=== PATIENT | male | born 1965 | race Two or more races ===

== ENCOUNTER 2019-06-03 19:45 | Inpatient (IN) | payer MEDICARE, OTHER ==
[~2019-06-03] VITALS: Ht 170.2 cm; Wt 83.5 kg
--- NOTE | 2019-06-03 20:38 | NUR ---
NURSE NOTES: Report received from GAUTAM Booker. Patient being transferred from [facility] for direct admission. Patient awaiting transportation from [facility] which is scheduled for 2129. Per report patient is alert and oriented x4. No signs of cardiac or respiratory distress noted. Patient is SR on tele monitor and on 12 lead EKG performed at [facility]. CT performed and per report showed R basal ganglia subacute infarct. Family is present at bedside to take belongings home and will be meeting patient at [facility]. Pt received the following medications: 18:44 Aspirin 325mg PO 17:01 NS 500mL IV 17:01 Ativan 1mg IVP VS as follows: BP 186/87, HR 81, Temp 97.5, RR 18, O2 sat 99% on RA Will await patient transport.
[2019-06-03 22:54] VITALS: BP 147/77
--- NOTE | 2019-06-03 22:54 | NUR ---
NURSE NOTES: Patient arrived for direct admission. Patient transported to room by [facility] without incident. Report received from Reno Morrison Patient is alert and oriented x4. No signs of cardiac or respiratory distress noted. Equal breath sound bilaterally in all lobes, pt is on room air. Patient is SR on tele monitor. Abdomen is soft, round, non-tender and patient reports no pain. Neuro check performed; Left sided arm and leg weakness noted 3/5 strength. Pupils 3mm and PERRLA, no tongue deviation at this time, no facial droop noted. Patient speech is of normal tone, speed and volume. Patient able to ambulate but gait is weak and patient encouraged to use call light for assistance, urinal at bedside. Left sided AV fistula noted, both thrill and bruit present. No signs of bleeding at this time. Patient provided with a bed bath and oral care. Patient tolerated care well. Patient remains resting in bed; bed is in lowest position, safety wheels engaged, side rails up x3, bed alarm activated and call light within reach. Will call MD for admission orders. Will Continue to monitor.
--- NOTE | 2019-06-03 23:30 | NUR ---
NURSE NOTES: Confirmed home medications with patient Per patient only takes Amlodipine 10mg PO daily Furosemide 5mg PO daily Confirmed NKA to medications or food
--- NOTE | 2019-06-03 23:39 | NUR ---
NURSE NOTES: Called Dr Gomez for admission orders. Dr Gomez stated he would call back in 5 minutes. Will await orders. Will continue to monitor.
[2019-06-04] VITALS: BP 144/78
--- NOTE | 2019-06-04 | NUR ---
NURSE NOTES: Neuro check performed; Pt aroused to minor stimulation as he was asleep (+1 NIH stroke scale) Left sided arm and leg weakness noted 3/5 strength. Left arm drift, but does not hit bed (+1 on NIH stroke scale) Pt states left hand is still slightly numb (+1 on NIH stroke scale for change in sensation) Bilateral Pupils 3mm and PERRLA, no tongue deviation at this time, no facial droop noted. Patient speech is of normal tone, speed and volume. Patient remains oriented and denies visual changes. Patient remains resting in bed; bed in lowest position, safety wheels engaged, call light within reach, side rails up x3, bed alarm activated. Will continue to monitor.
[2019-06-04] MEDS ORDERED: FUROSEMIDE20 M1 ORAL (00:21)
[2019-06-04] MEDS ORDERED: LISINOPRIL5 MG ORAL (00:21)
[2019-06-04] MEDS ORDERED: Omnipaue 350mg/ml 100ml vial INJ PRN (00:30)
--- NOTE | 2019-06-04 00:30 | NUR ---
NURSE NOTES: Dr Gomez called to give admission orders. Admission orders as follows: Admit to tele Full code Renal Diet CBC, CMP, Mg, Phos, Trop, Lipids, Pt, ptt, INR for AM labs Neuro consult with MD Tatiana Neuro Checks Q [address] Brain with and without contrast (even with elevated BUN/creat) Continue home rx + Heparin 5,000u Q 8hr, ASA 81mg Daily, Colace 100mg Q 12hr, Clonidine 0.1 mg PO Q 4hr PRN SBP>160, Tylenol 650mg PO Q6hr PRN mild pain, Zofran 4mg IVP Q 4hr PRN nausea/vomiting Will carry out orders. Will continue to monitor.
--- NOTE | 2019-06-04 01:00 | NUR ---
NURSE NOTES: Witnessed consent for CT with and without contrast. Signed consent form placed in patient chart. Will continue to monitor.
[2019-06-04 04:00] VITALS: BP 149/77
--- NOTE | 2019-06-04 07:17 | NUR ---
NURSE NOTES: Received report from Nohelia FLOREZ. Pt in bed AOX4 and able to make needs known. No c/o pain and denied SOB. NPO for Brain CT with contrast. IV in RAC 20G SL patent and asymptomatic. Sinus rhythm on the patient monitor. Call light within easy reach. Will continue to plan of care.
--- NOTE | 2019-06-04 07:17 | NUR ---
HAND-OFF: Report given to GAUTAM Berg. No signs of cardiac or respiratory distress noted. No change from initial neuro check.
[2019-06-04] MEDS ORDERED: Isovue-300 100ml vial INJ PRN (07:45)
[2019-06-04 08:00] VITALS: BP 147/82
[2019-06-04] MEDS ORDERED: Docusate 100mg cap ORAL SCH (09:00)
[2019-06-04] MEDS: Aspirin Baby 81mg ORAL SCH (09:20)
[2019-06-04] MEDS: Heparin 5000 units/ml inj SUBQ SCH ×2 (10:19→21:34)
--- NOTE | 2019-06-04 10:47 | Diagnostic Imaging Report ---
Indication: Headache Technique: Contiguous 5 mm thick transaxial imaging of the head obtained in a Siemens Sensation [address] scanner before and after intravenous administration of non-ionic contrast. Soft tissue and bone windows generated. Total Dose length Product (DLP): 2978.[address] Dose Index Volume (CTDIvol): 125.4 mGy Comparison: none Findings: There is abnormal slightly high attenuation within the right basal ganglia region right thalamus extending into the right salamanca radiata. There is mass effect on the right lateral ventricle which is compressed and asymmetrically smaller than the left. In addition just lateral to this area of high density there is hypoattenuation noted with some mild peripheral enhancement. The nature of this is not known and could be on the basis of a previous subacute infarct. Other possibilities such as underlying mass or cerebritis are not excluded. Further evaluation with MRI suggested. The basal cisterns appear normal. There is 5 mm midline shift. The posterior fossa structures appear unremarkable. Osseous structures are intact. There is some opacification of the left mastoid air cells. Paranasal sinuses are clear as visualized. IMPRESSION: Abnormal enhancement of the right basal ganglia region extending into the right salamanca radiata with mass effect and edema compressing the right lateral ventricle with 5 right to left midline shift. Considerations include subacute infarction, tumor and cerebritis. Further evaluation with MRI with gadolinium is recommended as well as clinical correlation and comparison to prior studies if available. The CT scanner at [facility] is accredited by the [employer] and the scans are performed using dose optimization techniques as appropriate to a performed exam including Automatic Exposure control.
[2019-06-04 11:23] VITALS: BP 161/87
--- NOTE | 2019-06-04 12:04 | Consultation ---
History of Present Illness General Date patient seen: Jun 04, 2019 Present Illness HPI 53 year old male with hx of DM>20 years, HTN, ESRF on HD around three years, presented to [facility] yesterday after HD with CC of Left arm heaviness and weakness. MRI at [facility] showed subacute capsular infarct vs, cerebritis vs tumor. Pt is transferred to [facility] for further management. Allergies: Coded Allergies: No Known Allergies (Unverified , 06/04/19) Medication History Scheduled Lisinopril (Lisinopril*), 5 MG ORAL DAILY, (Reported) Scheduled PRN Furosemide* (Lasix*), 5 MG ORAL DAILY PRN for For High Blood Pressure, (Reported ) Patient History Healthcare decision maker Resuscitation status Full Code Advanced Directive on File Past Medical/Surgical History Past Medical/Surgical History: (1) Diabetes mellitus (2) History of hypertension (3) ESRD (end stage renal disease) Review of Systems All Other Systems: negative except mentioned in HPI Physical Exam General Appearance: WD/WN, no apparent distress Lines, tubes and drains: peripheral HEENT: normocephalic, atraumatic Neck: non-tender, normal alignment Respiratory/Chest: chest wall non-tender, lungs clear, normal breath sounds Breasts: no masses Cardiovascular/Chest: normal peripheral pulses, normal rate Abdomen: normal bowel sounds Genitourinary/Rectal: normal genital exam Extremities: normal range of motion Skin Exam: normal pigmentation Neurologic: care professional II-XII grossly normal Last 24 Hour Vital Signs Date Time Temp Pulse Resp B/P (MAP) Pulse Ox O2 Delivery O2 Flow Rate FiO2 06/04/19 11:27 161/87 06/04/19 11:23 97.3 78 20 161/87 (111) 96 06/04/19 09:20 68 147/82 06/04/19 09:00 Room Air 06/04/19 08:00 68 06/04/19 08:00 97.5 74 18 147/82 (103) 97 06/04/19 04:00 97.6 68 19 149/77 (101) 99 06/04/19 03:28 67 06/04/19 00:00 97.7 69 20 144/78 (100) 99 06/03/19 23:24 65 06/03/19 23:21 Room Air 06/03/19 22:54 98.5 82 20 147/77 (100) 98 Intake and Output 06/03/19 06/04/19 19:00 07:00 Output Total 100 ml Balance -100 ml Output Urine Total 100 ml # Voids 1 Laboratory Tests Test 06/04/19 05:55 Prothrombin Time 10.6 SEC (9.30-11.50) Prothromb Time International Ratio 1.0 (0.9-1.1) Activated Partial Thromboplast Time 28 SEC (23-33) Height (Feet): 5 Height (Inches): 7.00 Weight (Pounds): 180 Medications Current Medications Medications (Trade) Dose Ordered Sig/Felice Route PRN Reason Start Time Stop Time Status Last Admin Dose Admin Acetaminophen (Tylenol) 650 mg Q4H PRN ORAL Mild Pain/Temp > 100.5 06/04/19 00:30 07/04/19 00:29 Amlodipine Besylate (Norvasc) 10 mg DAILY ORAL 06/04/19 09:00 07/04/19 08:59 06/04/19 09:20 Aspirin (ASA) 81 mg DAILY ORAL 06/04/19 09:00 07/04/19 08:59 06/04/19 09:20 Clonidine HCl (Catapres Tab) 0.1 mg Q4H PRN ORAL SBP >160 06/04/19 00:30 07/04/19 00:29 06/04/19 11:27 Docusate Sodium (Colace) 100 mg TWICE A DAY ORAL 06/04/19 09:00 07/04/19 08:59 06/04/19 09:20 Furosemide (Lasix) 5 mg DAILY ORAL 06/04/19 09:00 07/04/19 08:59 UNV Heparin Sodium (Porcine) (Heparin 5000 units/ml) 5,000 units EVERY 8 HOURS SUBQ 06/04/19 10:00 07/04/19 09:59 06/04/19 10:19 Iopamidol (Isovue-300 100ml) 100 ml NOW PRN INJ Radiology Procedure 06/04/19 07:45 06/06/19 07:31 Ondansetron HCl (Zofran) 4 mg EVERY 4 HOURS PRN IVP Nausea & Vomiting 06/04/19 00:30 07/04/19 00:29 Assessment/Plan Problem List: (1) CVA (cerebral vascular accident) ICD Codes: I63.9 - Cerebral infarction, unspecified SNOMED: 171563810 (2) Diabetes mellitus ICD Codes: E11.9 - Type 2 diabetes mellitus without complications SNOMED: 69939179 (3) ESRD (end stage renal disease) ICD Codes: N18.6 - End stage renal disease SNOMED: 44807634 (4) History of hypertension ICD Codes: Z86.79 - Personal history of other diseases of the circulatory system SNOMED: 944654513 Assessment/Plan: pt/ot evaluation doppler of carotid artery and echocardiogram Neuro evaluation HD by nephrology sliding scale diabetic diet Savannah Sales MD Jun 04, 2019 12:04
--- NOTE | 2019-06-04 12:18 | Consultation ---
Consult Note Consult Note asked to eval for dialysis management- on HD for 3 years M W Sat dialysed yesterday here for left sided weakness acute no allergies had eye surgeries Dm HTN years Assessment/Plan ESRD CVA affecting Left side HTN DM HD in am check labs keep BP and BS in check per consultants Samir Liriano MD Jun 04, 2019 12:18
[2019-06-04 13:09] LABS: BASOPHILS % (AUTO) 1.3 % (0.0-2.0); EOSINOPHILS % (AUTO) 2.2 % (0.0-3.0); HEMATOCRIT 38.7 % (42.0-52.0); HEMOGLOBIN 12.9 G/DL (14.2-18.0); LYMPHOCYTES % (AUTO) 21.9 % (20.0-45.0); MEAN CORPUSCULAR VOLUME 91 FL (80-99); MONOCYTES % (AUTO) 7.9 % (1.0-10.0); NEUTROPHILS % (AUTO) 66.8 % (45.0-75.0); PLATELET COUNT 158 K/UL (150-450); RED BLOOD COUNT 4.26 M/UL (4.70-6.10); RED CELL DISTRIBUTION WIDTH 13.3 % (11.6-14.8)
--- NOTE | 2019-06-04 13:26 | History & Physical ---
History and Physical History & Physicial Mac Gomez MD Jun 04, 2019 13:26
[2019-06-04] MEDS ORDERED: Gadavist 7.5mMol/7.5ml vial IV PRN (13:30)
[2019-06-04] MEDS: Docusate 100mg cap ORAL SCH ×2 (13:33→18:03)
[2019-06-04 13:35] LABS: CREATINE KINASE 113 U/L (26-308); LACTATE DEHYDROGENASE 164 U/L (81-234)
[2019-06-04 13:51] LABS: APPEARANCE,URINE CLEAR; BILIRUBIN, URINE NEGATIVE (NEGATIVE); COLOR,URINE PALE YELLOW; GLUCOSE, URINE (UA) 4+ (NEGATIVE); KETONES,URINE NEGATIVE (NEGATIVE); LEUKOCYTE ESTERASE ,URINE 1+ (NEGATIVE); NITRITE,URINE NEGATIVE (NEGATIVE); PH,URINE 9 (4.5-8.0); PROTEIN,URINE 3+ (NEGATIVE); UROBILINOGEN,URINE NORMAL MG/DL (0.0-1.0)
[2019-06-04 14:22] LABS: % IRON SATURATION 28 % (15-50); IRON 47 ug/dL (50-175); TOTAL IRON BINDING CAPACITY 168 ug/dL (250-450)
[2019-06-04 14:59] LABS: ALANINE AMINOTRANSFERASE 16 U/L (12-78); ALBUMIN 3.2 G/DL (3.4-5.0); ALBUMIN/GLOBULIN RATIO 0.9 (1.0-2.7); ALKALINE PHOSPHATASE 82 U/L (46-116); ANION GAP 9 mmol/L (5-15); ASPARTATE AMINO TRANSFERASE 15 U/L (15-37); BLOOD UREA NITROGEN 43 mg/dL (7-18); CALCIUM 8.4 MG/DL (8.5-10.1); CARBON DIOXIDE 30 MMOL/L (21-32); CHLORIDE 99 MMOL/L (98-107); SODIUM 138 MMOL/L (136-145)
[2019-06-04 15:09] LABS: BILIRUBIN,TOTAL 0.5 MG/DL (0.2-1.0)
[2019-06-04] MEDS ORDERED: LORazepam Inj 2mg/ml 1ml IV SCH (15:15)
[2019-06-04 16:00] VITALS: BP 132/74
--- NOTE | 2019-06-04 16:30 | NUR ---
CASE MANAGEMENT: INITIAL REVIEW 53 YR OLD MALE DIRECT ADMIT FROM [facility] MRI SHOWS SUB ACUTE CAPSULAR INFARCT VS CEREBRITIS VS TUMOR SI: CVA . DM. ESRD . 98.5 82 20 147/77 98% ON RA IS: PO/OT EVAL NEURO EVAL CAROTID DOPPLER NEPHRO EVAL 2E TELE UNIT PLAN: DISCHARGE WHEN MEDICALLY CLEAR
--- NOTE | 2019-06-04 17:00 | NUR ---
NURSE NOTES: Spoke to Roberta [facility] for scheduling HD on 06/05/2019
--- NOTE | 2019-06-04 17:14 | Diagnostic Imaging Report ---
Indication: 53-year-old male altered level of consciousness Technique: The head was imaged in a 1.5 Mita magnet. Sequences obtained include sagittal and axial T1 FLAIR, axial T2 fast spin echo with fat saturation, axial T2 FLAIR, diffusion and ADC map. Gadolinium-enhanced axial and coronal T1 FLAIR obtained also. Comparison: CT head with and without contrast performed earlier today Examination demonstrates a complex, partially cystic, mass with areas of intense enhancement demonstrated within the right thalamus and intimately associated with portions of the right lateral ventricle especially the temporal horn. 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 The mass abuts or involves part of the choroid plexus and extends through the lateral wall of the right lateral ventricle into the salamanca radiata. Approximate dimensions of the mass are 4.2 x 2.8 x 2.8 cm. There is compression of the third ventricle by the medial part of the mass at the level of the thalamus. There is vasogenic edema within the right temporal lobe and parietal lobe laterally. There is a band like focus of diffusion restriction posterior to the mass just posterior and medial to the right lateral ventricle involving the right posterior aspect of the corpus callosum and adjacent white matter measuring about 2 x 0.6 cm consistent with an acute CVA. Portions of the mass exhibit some diffusion restriction also there is no hydrocephalus. No additional lesions are seen. The ventricles appear symmetric. The basal cisterns are intact. Corpus callosum is normal. There is some T2 hyperintense signal within the mastoid portions of both temporal bones. Osseous bone marrow signal normal. IMPRESSION: Heterogeneous, enhancing, partially cystic 4.2 x 2.8 x 2.8 cm mass involving the right thalamus, right lateral ventricle and adjacent salamanca radiata suspicious for primary MATERIAL HANDLER neoplasm. Mild compression of the third ventricle without evidence of hydrocephalus. No evidence of acute hemorrhage. No additional lesions identified. Differential considerations include primary MATERIAL HANDLER neoplasm such as a subependymoma or glioblastoma. Associated small, acute infarct involving the right aspect of the splenium of the corpus callosum and adjacent salamanca radiata. Critical value communication. Findings were discussed via telephone with Dr. Gomez via telephone 5:00 PM 06/04/2019.
[2019-06-04] MEDS: NovoLOG Insulin Flexpen SUBQ SCH ×2 (17:35→21:35)
--- NOTE | 2019-06-04 18:00 | History and Physical Report ---
DATE OF ADMISSION: 06/03/2019 CHIEF COMPLAINT: Transferred from [facility] due to the altered mental status with left-sided weakness. HISTORY OF PRESENT ILLNESS: This is a 53-year-old gentleman with past medical history significant for end-stage renal disease, on hemodialysis, Saturday, Saturday, Saturday; diabetes type 2 for long period of time; hypertension; history of right kidney mass, status post nephrectomy over 5 years ago with the recent left arm AV shunt , who presented to the hospital initially at [facility], complaining about the left-sided weakness. The patient stated that it has been going on for a week. Weakness is constant and never experienced this before and nothing makes it better and lying down on the left side, exacerbates the symptoms. The patient denies any trauma or fall or head trauma. Complained about tingling, numbness, and weakness on the left side and denies any fever, chills, nausea, or vomiting. Denies any bowel or urine incontinence. Denies any loss of consciousness. Shortly after initial evaluation in the emergency, the patient was confirmed to have acute CVA on a MRI of the brain and subsequently, the patient was transferred to the [facility] for further evaluation, neurological monitoring. PAST MEDICAL HISTORY AND PAST SURGICAL HISTORY: As above. History of end-stage renal disease, on hemodialysis; diabetes type 2; hypertension; history of right nephrectomy due to the kidney mass; history of left arm clot formation, AV fistula clotted, status post recent declotting; and history of bilateral cataract surgery. MEDICATIONS AT HOME: Please refer to medication reconciliation. ALLERGIES: No known drug allergies. SOCIAL HISTORY: The patient denies any smoking, alcohol, or drugs at this time. 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 FAMILY HISTORY: Mother had end-stage renal disease and diabetes. Father has colon cancer and from a sequela of that. REVIEW OF SYSTEMS: Mostly as above. Denies any dysuria, frequency, or hematuria. Denies any hemoptysis or hematochezia. Denies any double vision. Denies any loss of consciousness. Denies any suicidal or homicidal ideation. PHYSICAL EXAMINATION: VITAL SIGNS: Upon arrival to [facility], temperature 97.6, pulse of 68, respirations 19, blood pressure 149/77. GENERAL: The patient is awake, responsive, in no acute distress. HEAD AND NECK: Pupils are equal and reactive to light. Extraocular movements intact. Neck was supple. No JVD. LUNGS: Good air entry. No wheeze or rales. HEART: S1, S2. Regular rhythm. No gallops. ABDOMEN: Soft, nondistended, nontender. Positive bowel sounds. EXTREMITIES: No cyanosis, clubbing, edema. Left upper extremity had AV fistula working with a thrill. NEUROLOGIC: Cranial nerves II through XII grossly intact. The patient is moving all the extremities, left side weaker than right side. Gait is unsteady and abnormal. LABORATORY DATA: On admission from [facility] showed PT of 10, INR 1.0, PTT of 28. The patient had from [facility], troponin 0.08, magnesium is 2.3, calcium is 8.9, total bilirubin of 0.6, total protein is 8.3, creatinine is 8.1, BUN is 28, glucose is 323. ALT of 18. WBC of 4.6, hemoglobin of 13, hematocrit 42, platelet is 168,000. The patient had a MRI of the brain done at [facility], noted that the patient has signal changes in the right internal capsule, right basal ganglia is suggestive of the possible subacute infarction to exclude any underlying neoplasms. Follow up with a noncontrast CT of the head and MRI of the brain with contrast is recommended, a 2 mm midline shift in the left side, bilateral mastoiditis, and right maxillary sinusitis. EKG, is a sinus rhythm with ventricular rate of 74, effusion complex was noted, left anterior fascicular block. No ST-elevation was noted. No T-wave inversion. Left ventricular hypertrophy was noted. The patient has a Q-wave in lead I aVL. ASSESSMENT: 1. Left-sided weakness, most likely secondary to acute CVA in the right basal ganglia region extending to the right salamanca radiata with a mass effect and edema compressing on the right lateral ventricle right to left midline shift. 2. Hypertension. 3. End-stage renal disease, on hemodialysis. 4. Diabetes type 2. 5. Dyslipidemia. PLAN: Admit the patient to monitor unit. The patient's code status is Full code. DVT prophylaxis. SCD and heparin subcutaneous. We will follow up with Dr. Sales from Pulmonary Critical Care and Dr. Liriano from Nephrology. Monitor laboratory. Neuro check. Echocardiogram. Code status, Full code and monitor blood pressure closely. Mac Gomez M.D. DR: KELLY JOB#: [id number] CC:
--- NOTE | 2019-06-04 19:05 | NUR ---
NURSE NOTES: Dr. Gomez paged for hyperglycemia(Bmg/dl). Awaiting for reply
--- NOTE | 2019-06-04 19:31 | NUR ---
HAND-OFF: Report given to Alexis FLOREZ. Pt remains stable..
--- NOTE | 2019-06-04 19:37 | NUR ---
NURSE NOTES: Received report from GAUTAM Villegas. Patient is in bed, awake and responsive. Breathing regular and unlabored with no SOB noted at this time. Patient's IV is intact and saline locked, dialysis site is intact. Morning nurse informed this RN about the patient's increased BG and that the doctor was notified and awaiting response. Patient denies any pain or discomfort at this time. Bed is in lowest position, breaks engaged, and call light within reach. Will continue to monitor.
[2019-06-04 20:00] VITALS: BP 137/68
[2019-06-04] MEDS: Atorvastatin 80mg tab ORAL SCH (21:33)
[2019-06-04] MEDS: GlipiZIDE 5mg tab ORAL SCH (22:29)
[2019-06-05] VITALS: BP 127/58
--- NOTE | 2019-06-05 00:35 | NUR ---
NURSE NOTES: Patient requested to see nurse and he stated that "I feel a little weak, I think my blood sugar is low." Upon assessment of patient's blood sugar, BG was at 65. Offered patient juice, rechecked BG again in 15 minutes and it was at 69. Offered patient a sandwich. After eating the sandwich the patient stated "I am feeling much better now." Will reassess the patient and continue to monitor the BG. Patient is currently stable with no distress noted at this time.
--- NOTE | 2019-06-05 01:50 | NUR ---
NURSE NOTES: Reassessed patient's BG and it was 148. Patient no longer complaining of weakness. Patient comfortably resting in bed.Will continue to monitor.
[2019-06-05 04:00] VITALS: BP 130/64
[2019-06-05] MEDS: Heparin 5000 units/ml inj SUBQ SCH ×3 (05:20→21:35)
[2019-06-05] MEDS: NovoLOG Insulin Flexpen SUBQ SCH ×4 (06:22→21:36)
[2019-06-05 06:56] LABS: HEMOGLOBIN 12.1 G/DL (14.2-18.0); MEAN CORPUSCULAR VOLUME 91 FL (80-99); PLATELET COUNT 167 K/UL (150-450); RED BLOOD COUNT 3.96 M/UL (4.70-6.10); RED CELL DISTRIBUTION WIDTH 13.1 % (11.6-14.8); WHITE BLOOD COUNT 5.7 K/UL (4.8-10.8)
--- NOTE | 2019-06-05 07:15 | NUR ---
NURSE NOTES: Received report from Cristela FLOREZ. Pt in bed awake and orientedx3 but forgetful. IV in RAC 20G but infiltrated. Will restart the new IV line. Bed in lowest position and locked. Side rails x3 up for safety. Call light within easy reach. No SOB noted. Will continue to plan of care.
--- NOTE | 2019-06-05 07:15 | NUR ---
HAND-OFF: Report given to GAUTAM Villegas. Patient in stable condition. Plan of care endorsed.
[2019-06-05 07:48] LABS: ALANINE AMINOTRANSFERASE 16 U/L (12-78); ALBUMIN 3.2 G/DL (3.4-5.0); ALBUMIN/GLOBULIN RATIO 0.9 (1.0-2.7); ALKALINE PHOSPHATASE 84 U/L (46-116); ANION GAP 8 mmol/L (5-15); ASPARTATE AMINO TRANSFERASE 16 U/L (15-37); BILIRUBIN,TOTAL 0.3 MG/DL (0.2-1.0); BLOOD UREA NITROGEN 52 mg/dL (7-18); CALCIUM 8.4 MG/DL (8.5-10.1); CARBON DIOXIDE 30 MMOL/L (21-32); CHLORIDE 101 MMOL/L (98-107); CHOLESTEROL 134 MG/DL (< 200); CREATININE 11.7 MG/DL (0.55-1.30); HDL CHOLESTEROL 41 MG/DL (40-60); PHOSPHORUS 4.8 MG/DL (2.5-4.9); POTASSIUM 4.3 MMOL/L (3.5-5.1); SODIUM 139 MMOL/L (136-145); TRIGLYCERIDES 80 MG/DL (30-150)
[2019-06-05 08:00] VITALS: BP 120/64
--- NOTE | 2019-06-05 08:26 | NUR ---
NURSE NOTES: Made Dr. Sales aware of elevated trop-i results to 0.088. No new ordered noted.
[2019-06-05] MEDS: Docusate 100mg cap ORAL SCH ×3 (08:45→17:28)
[2019-06-05] MEDS: Aspirin Baby 81mg ORAL SCH (08:46)
[2019-06-05] MEDS: GlipiZIDE 5mg tab ORAL SCH ×2 (08:46→17:28)
--- NOTE | 2019-06-05 11:22 | Pulmonology Progress Note ---
Assessment/Plan Problems: (1) CVA (cerebral vascular accident) (2) Diabetes mellitus (3) ESRD (end stage renal disease) (4) History of hypertension Assessment/Plan doing better pt evaluation appreciated BP controlled Echo reviewed, EF wnl doppler of carotid artery reviewed, wnl f/u Troponin level, Cardiology to see only on Aspirin, might benefit from Plavix for secondary prevention of CVA if ok with neuro awaiting neuro evaluation. Subjective ROS Limited/Unobtainable: No Constitutional: Reports: no symptoms HEENT: Repors: no symptoms Respiratory: Reports: no symptoms Allergies: Coded Allergies: No Known Allergies (Unverified , 06/04/19) Objective Last 24 Hour Vital Signs Date Time Temp Pulse Resp B/P (MAP) Pulse Ox O2 Delivery O2 Flow Rate FiO2 06/05/19 09:00 Room Air 06/05/19 08:46 71 120/64 06/05/19 08:46 71 120/64 06/05/19 08:00 69 06/05/19 08:00 97.0 71 20 120/64 (82) 97 06/05/19 04:00 69 06/05/19 04:00 98.2 74 20 130/64 (86) 97 06/05/19 00:00 70 06/05/19 00:00 98.1 68 20 127/58 (81) 96 06/04/19 21:33 70 137/68 06/04/19 21:00 Room Air 06/04/19 20:00 83 06/04/19 20:00 98.4 70 20 137/68 (91) 95 06/04/19 16:00 71 06/04/19 16:00 97.7 69 18 132/74 (93) 96 06/04/19 12:00 70 06/04/19 11:27 161/87 06/04/19 11:23 97.3 78 20 161/87 (111) 96 Intake and Output 06/04/19 06/05/19 19:00 07:00 Intake Total 240 ml 320 ml Balance 240 ml 320 ml Intake Oral 240 ml 320 ml # Voids 2 2 General Appearance: WD/WN HEENT: normocephalic, atraumatic Respiratory/Chest: chest wall non-tender, lungs clear Cardiovascular: normal peripheral pulses, normal rate Abdomen: normal bowel sounds, soft, non tender Genitourinary: normal external genitalia 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 Laboratory Tests 06/04/19 12:30: White Blood Count 5.0, Red Blood Count 4.26L, Hemoglobin 12.9L, Hematocrit 38.7L , Mean Corpuscular Volume 91, Mean Corpuscular Hemoglobin 30.3, Mean Corpuscular Hemoglobin Concent 33.3, Red Cell Distribution Width 13.3, Platelet Count 158, Mean Platelet Volume 7.2, Neutrophils (%) (Auto) 66.8, Lymphocytes (% ) (Auto) 21.9, Monocytes (%) (Auto) 7.9, Eosinophils (%) (Auto) 2.2, Basophils ( %) (Auto) 1.3, Erythrocyte Sedimentation Rate 32H, Reticulocyte Count 0.7, Uric Acid 3.8, Iron Level 47L, Total Iron Binding Capacity 168L, Percent Iron Saturation 28, Unsaturated Iron Binding 121, Lactate Dehydrogenase 164, Total Creatine Kinase 113, C-Reactive Protein, Quantitative 1.2H, Carcinoembryonic Antigen [Pending], Vitamin B12 Level 1315H, Folate 69.4H 06/04/19 13:30: Urine Color Pale yellow, Urine Appearance Clear, Urine pH 9, Urine Specific [place] 1.015, Urine Protein 3+H, Urine Glucose (UA) 4+H, Urine Ketones Negative , Urine Blood 2+H, Urine Nitrite Negative, Urine Bilirubin Negative, Urine Urobilinogen Normal, Urine Leukocyte Esterase 1+H, Urine RBC 2-4H, Urine WBC 5- 10H, Urine Squamous Epithelial Cells None, Urine Bacteria Occasional, Urine Eosinophils None seen, Urine Random Sodium 72, Urine Potassium Timed 37 06/04/19 14:10: Sodium Level 138, Potassium Level 5.0, Chloride Level 99, Carbon Dioxide Level 30, Anion Gap 9, Blood Urea Nitrogen 43H, Creatinine 10.0H, Estimat Glomerular Filtration Rate 5.5, Glucose Level 383H, Calcium Level 8.4L, Total Bilirubin 0.5 , Aspartate Amino Transf (AST/SGOT) 15, Alanine Aminotransferase (ALT/SGPT) 16, Alkaline Phosphatase 82, Total Protein 6.8, Albumin 3.2L, Globulin 3.6, Albumin/ Globulin Ratio 0.9L 06/05/19 05:47: White Blood Count 5.7, Red Blood Count 3.96L, Hemoglobin 12.1L, Hematocrit 36.0L , Mean Corpuscular Volume 91, Mean Corpuscular Hemoglobin 30.5, Mean Corpuscular Hemoglobin Concent 33.6, Red Cell Distribution Width 13.1, Platelet Count 167, Mean Platelet Volume 7.4, Neutrophils (%) (Auto) , Lymphocytes (%) ( Auto) , Monocytes (%) (Auto) , Eosinophils (%) (Auto) , Basophils (%) (Auto) , Sodium Level 139, Potassium Level 4.3, Chloride Level 101, Carbon Dioxide Level 30, Anion Gap 8, Blood Urea Nitrogen 52H, Creatinine 11.7H, Estimat Glomerular Filtration Rate 4.6, Glucose Level 162#H, Calcium Level 8.4L, Total Bilirubin 0.3, Aspartate Amino Transf (AST/SGOT) 16, Alanine Aminotransferase (ALT/SGPT) 16, Alkaline Phosphatase 84, Total Protein 6.9, Albumin 3.2L, Globulin 3.7, Albumin/Globulin Ratio 0.9L, Differential Total Cells Counted 100, Neutrophils % (Manual) 66, Lymphocytes % (Manual) 28, Monocytes % (Manual) 5, Eosinophils % (Manual) 1, Basophils % (Manual) 0, Band Neutrophils 0, Platelet Estimate Adequate, Platelet Morphology Normal, Red Blood Cell Morphology Normal, Phosphorus Level 4.8, Magnesium Level 2.2, Troponin I 0.088H, Triglycerides Level 80, Cholesterol Level 134, LDL Cholesterol 74, HDL Cholesterol 41, Cholesterol/HDL Ratio 3.3 06/05/19 09:00: Stool Occult Blood [Pending] Current Medications Medications (Trade) Dose Ordered Sig/Felice Route PRN Reason Start Time Stop Time Status Last Admin Dose Admin Acetaminophen (Tylenol) 650 mg Q4H PRN ORAL Mild Pain/Temp > 100.5 06/04/19 00:30 07/04/19 00:29 Amlodipine Besylate (Norvasc) 10 mg DAILY ORAL 06/05/19 09:00 07/04/19 08:59 06/05/19 08:46 Aspirin (ASA) 81 mg DAILY ORAL 06/04/19 09:00 07/04/19 08:59 06/05/19 08:46 Atorvastatin Calcium (Lipitor) 80 mg BEDTIME ORAL 06/04/19 21:00 07/04/19 20:59 06/04/19 21:33 Carvedilol (Coreg) 3.125 mg EVERY 12 HOURS ORAL 06/04/19 21:00 07/04/19 20:59 06/05/19 08:46 Clonidine HCl (Catapres Tab) 0.1 mg Q4H PRN ORAL SBP >160 06/04/19 00:30 07/04/19 00:29 06/04/19 11:27 Dextrose (Dextrose 50%) 25 ml Q30M PRN IV Hypoglycemia 06/04/19 13:15 07/04/19 13:14 Dextrose (Dextrose 50%) 50 ml Q30M PRN IV Hypoglycemia 06/04/19 13:15 07/04/19 13:14 Docusate Sodium (Colace) 100 mg TID ORAL 06/04/19 13:00 07/04/19 08:59 06/05/19 08:45 Gadobutrol (Gadavist) 7.5 mmol NOW PRN IV Radiology Procedure 06/04/19 13:30 06/08/19 13:28 Glipizide (Glucotrol) 5 mg BID ORAL 06/04/19 22:15 07/04/19 22:14 06/05/19 08:46 Heparin Sodium (Porcine) (Heparin 5000 units/ml) 5,000 units EVERY 8 HOURS SUBQ 06/04/19 10:00 07/04/19 09:59 06/04/19 21:34 Insulin Aspart (NovoLOG) BEFORE MEALS AND HS SUBQ 06/04/19 16:30 07/04/19 16:29 06/05/19 06:22 Iopamidol (Isovue-300 100ml) 100 ml NOW PRN INJ Radiology Procedure 06/04/19 07:45 06/06/19 07:31 Ondansetron HCl (Zofran) 4 mg EVERY 4 HOURS PRN IVP Nausea & Vomiting 06/04/19 00:30 07/04/19 00:29 Pantoprazole (Protonix) 40 mg EVERY 12 HOURS ORAL 06/04/19 21:44 07/04/19 21:43 06/05/19 08:46 Savannah Sales MD Jun 05, 2019 11:22
[2019-06-05 11:55] VITALS: BP 115/59
--- NOTE | 2019-06-05 14:28 | NUR ---
P.T Note: late entry 1030 P.T evaluation completed and treatment initiated. Pt is alert, O x 4 , pleasant and cooperative. Pt denied c/o pain nor discomfort but weakness of the LUE/LE and numbness L hand . Pt presented L hemiparesis , impaired rn radiology strength, and impaired LLE/hand/finger coordination as well as grasp and release affecting overall functional mobility independence and safety. 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 Pt also reported he started using the cane since he had fallen 2-3x since this past 2 wks. Pt stated he never consulted the MD hoping that strength will return. P.T. Pt is impulsive currently requires MIN A X 1 and cues for bed mobility and transfer activities. Pt is able to ambulate w/o an AD however needed hand in hand/min a x 1 to maintain ambulatory balance due to unsteady gait. Pt will benefit from skilled P.T service to improve strength, balance and coordination to increase mobility independence and safety. Pt is highly motivated to get better and should benefit from ARU VS home P.T. for intensive rehab. Thank you for this referral.
--- NOTE | 2019-06-05 14:49 | Nephrology Progress Note ---
Assessment/Plan Problem List: (1) ESRD (end stage renal disease) (2) History of hypertension (3) CVA (cerebral vascular accident) Assessment: left sided weakness Assessment ESRD CVA affecting Left side HTN DM Plan HD today check labs keep BP and BS in check per consultants Subjective ROS Limited/Unobtainable: No Constitutional: Reports: malaise Objective Objective Last 24 Hour Vital Signs Date Time Temp Pulse Resp B/P (MAP) Pulse Ox O2 Delivery O2 Flow Rate FiO2 06/05/19 12:00 69 06/05/19 11:55 97.0 71 20 115/59 (77) 100 06/05/19 09:00 Room Air 06/05/19 08:46 71 120/64 06/05/19 08:46 71 120/64 06/05/19 08:00 69 06/05/19 08:00 97.0 71 20 120/64 (82) 97 06/05/19 04:00 69 06/05/19 04:00 98.2 74 20 130/64 (86) 97 06/05/19 00:00 70 06/05/19 00:00 98.1 68 20 127/58 (81) 96 06/04/19 21:33 70 137/68 06/04/19 21:00 Room Air 06/04/19 20:00 83 06/04/19 20:00 98.4 70 20 137/68 (91) 95 06/04/19 16:00 71 06/04/19 16:00 97.7 69 18 132/74 (93) 96 Intake and Output 06/04/19 06/05/19 19:00 07:00 Intake Total 240 ml 320 ml Balance 240 ml 320 ml Intake Oral 240 ml 320 ml # Voids 2 2 Laboratory Tests 06/05/19 05:47: White Blood Count 5.7, Red Blood Count 3.96L, Hemoglobin 12.1L, Hematocrit 36.0L , Mean Corpuscular Volume 91, Mean Corpuscular Hemoglobin 30.5, Mean Corpuscular Hemoglobin Concent 33.6, Red Cell Distribution Width 13.1, Platelet Count 167, Mean Platelet Volume 7.4, Neutrophils (%) (Auto) , Lymphocytes (%) ( Auto) , Monocytes (%) (Auto) , Eosinophils (%) (Auto) , Basophils (%) (Auto) , Differential Total Cells Counted 100, Neutrophils % (Manual) 66, Lymphocytes % ( Manual) 28, Monocytes % (Manual) 5, Eosinophils % (Manual) 1, Basophils % ( Manual) 0, Band Neutrophils 0, Other Cell Type Pathologist review, Platelet Estimate Adequate, Platelet Morphology Normal, Red Blood Cell Morphology Normal , Sodium Level 139, Potassium Level 4.3, Chloride Level 101, Carbon Dioxide Level 30, Anion Gap 8, Blood Urea Nitrogen 52H, Creatinine 11.7H, Estimat Glomerular Filtration Rate 4.6, Glucose Level 162#H, Calcium Level 8.4L, Phosphorus Level 4.8, Magnesium Level 2.2, Total Bilirubin 0.3, Aspartate Amino Transf (AST/SGOT) 16, Alanine Aminotransferase (ALT/SGPT) 16, Alkaline Phosphatase 84, Troponin I 0.088H, Total Protein 6.9, Albumin 3.2L, Globulin 3.7 , Albumin/Globulin Ratio 0.9L, Triglycerides Level 80, Cholesterol Level 134, LDL Cholesterol 74, HDL Cholesterol 41, Cholesterol/HDL Ratio 3.3 06/05/19 09:00: Stool Occult Blood Negative Height (Feet): 5 Height (Inches): 7.00 Weight (Pounds): 181 General Appearance: no apparent distress Cardiovascular: normal rate Respiratory/Chest: lungs clear Abdomen: soft Neurologic: other - left weakness improving Samir Liriano MD Jun 05, 2019 14:49
--- NOTE | 2019-06-05 15:18 | NUR ---
CASE MANAGEMENT: REVIEW 06/05/19 SI: CVA . DM. ESRD ON HD . CVA 97.0 71 20 120/64 97% ON RA (+) TROP BUN 52 BUN 11.7 BG 162 CA+8.4 IS: HEPARIN SQ Q8HR NOVOLOG SQ QAC&HS COREG PO BID NORVASC PO QD PROTONIX PO Q12HR CATAPRES Q4/PRN ASPIRIN [P QD LIPITOR PO QHS GLIPIZIDE PO BID 2E TELE UNIT DCP: DISCHARGE WHEN MEDICALLY CLEAR PLAN: PT EVAL HD TODAY
--- NOTE | 2019-06-05 15:43 | Internal Med Progress Note ---
Subjective Physician Name Mac Gomez Attending Physician Mac Gomez MD Current Medications Medications (Trade) Dose Ordered Sig/Felice Route PRN Reason Start Time Stop Time Status Last Admin Dose Admin Acetaminophen (Tylenol) 650 mg Q4H PRN ORAL Mild Pain/Temp > 100.5 06/04/19 00:30 07/04/19 00:29 Amlodipine Besylate (Norvasc) 10 mg DAILY ORAL 06/05/19 09:00 07/04/19 08:59 06/05/19 08:46 Aspirin (ASA) 81 mg DAILY ORAL 06/04/19 09:00 07/04/19 08:59 06/05/19 08:46 Atorvastatin Calcium (Lipitor) 80 mg BEDTIME ORAL 06/04/19 21:00 07/04/19 20:59 06/04/19 21:33 Carvedilol (Coreg) 3.125 mg EVERY 12 HOURS ORAL 06/04/19 21:00 07/04/19 20:59 06/05/19 08:46 Clonidine HCl (Catapres Tab) 0.1 mg Q4H PRN ORAL SBP >160 06/04/19 00:30 07/04/19 00:29 06/04/19 11:27 Dextrose (Dextrose 50%) 25 ml Q30M PRN IV Hypoglycemia 06/04/19 13:15 07/04/19 13:14 Dextrose (Dextrose 50%) 50 ml Q30M PRN IV Hypoglycemia 06/04/19 13:15 07/04/19 13:14 Docusate Sodium (Colace) 100 mg TID ORAL 06/04/19 13:00 07/04/19 08:59 06/05/19 08:45 Gadobutrol (Gadavist) 7.5 mmol NOW PRN IV Radiology Procedure 06/04/19 13:30 06/08/19 13:28 Glipizide (Glucotrol) 5 mg BID ORAL 06/04/19 22:15 07/04/19 22:14 06/05/19 08:46 Heparin Sodium (Porcine) (Heparin 5000 units/ml) 5,000 units EVERY 8 HOURS SUBQ 06/04/19 10:00 07/04/19 09:59 06/05/19 13:23 Insulin Aspart (NovoLOG) BEFORE MEALS AND HS SUBQ 06/04/19 16:30 07/04/19 16:29 06/05/19 11:59 Iopamidol (Isovue-300 100ml) 100 ml NOW PRN INJ Radiology Procedure 06/04/19 07:45 06/06/19 07:31 Nitroglycerin (Ntg) 1 patch Q24H TDERMAL 06/05/19 15:00 07/05/19 14:59 Ondansetron HCl (Zofran) 4 mg EVERY 4 HOURS PRN IVP Nausea & Vomiting 06/04/19 00:30 07/04/19 00:29 Pantoprazole (Protonix) 40 mg EVERY 12 HOURS ORAL 06/04/19 21:44 07/04/19 21:43 06/05/19 08:46 Allergies: Coded Allergies: No Known Allergies (Unverified , 06/04/19) Subjective awake, alert, responsive, NAD, No CP or SOB, Left side weakness improving., at bedside. Objective Last Vital Signs Date Time Temp Pulse Resp B/P (MAP) Pulse Ox O2 Delivery O2 Flow Rate FiO2 06/05/19 12:00 69 06/05/19 11:55 97.0 20 115/59 (77) 100 06/05/19 09:00 Room Air Laboratory Tests Test 06/05/19 05:47 06/05/19 09:00 White Blood Count 5.7 K/UL (4.8-10.8) Red Blood Count 3.96 M/UL (4.70-6.10) L Hemoglobin 12.1 G/DL (14.2-18.0) L Hematocrit 36.0 % (42.0-52.0) L Mean Corpuscular Volume 91 FL (80-99) Mean Corpuscular Hemoglobin 30.5 PG (27.0-31.0) Mean Corpuscular Hemoglobin Concent 33.6 G/DL (32.0-36.0) Red Cell Distribution Width 13.1 % (11.6-14.8) Platelet Count 167 K/UL (150-450) Mean Platelet Volume 7.4 FL (6.5-10.1) Neutrophils (%) (Auto) % (45.0-75.0) Lymphocytes (%) (Auto) % (20.0-45.0) Monocytes (%) (Auto) % (1.0-10.0) Eosinophils (%) (Auto) % (0.0-3.0) Basophils (%) (Auto) % (0.0-2.0) Differential Total Cells Counted 100 Neutrophils % (Manual) 66 % (45-75) Lymphocytes % (Manual) 28 % (20-45) Monocytes % (Manual) 5 % (1-10) Eosinophils % (Manual) 1 % (0-3) Basophils % (Manual) 0 % (0-2) Band Neutrophils 0 % (0-8) Other Cell Type Pathologist review Platelet Estimate Adequate Platelet Morphology Normal Red Blood Cell Morphology Normal Sodium Level 139 MMOL/L (136-145) Potassium Level 4.3 MMOL/L (3.5-5.1) Chloride Level 101 MMOL/L (98-107) Carbon Dioxide Level 30 MMOL/L (21-32) Anion Gap 8 mmol/L (5-15) Blood Urea Nitrogen 52 mg/dL (7-18) H Creatinine 11.7 MG/DL (0.55-1.30) H Estimat Glomerular Filtration Rate 4.6 mL/min (>60) Glucose Level 162 MG/DL (74-106) #H Calcium Level 8.4 MG/DL (8.5-10.1) L Phosphorus Level 4.8 MG/DL (2.5-4.9) Magnesium Level 2.2 MG/DL (1.8-2.4) Total Bilirubin 0.3 MG/DL (0.2-1.0) Aspartate Amino Transf (AST/SGOT) 16 U/L (15-37) Alanine Aminotransferase (ALT/SGPT) 16 U/L (12-78) Alkaline Phosphatase 84 U/L (46-116) Troponin I 0.088 ng/mL (0.000-0.056) Total Protein 6.9 G/DL (6.4-8.2) Albumin 3.2 G/DL (3.4-5.0) L Globulin 3.7 g/dL Albumin/Globulin Ratio 0.9 (1.0-2.7) L Triglycerides Level 80 MG/DL (30-150) Cholesterol Level 134 MG/DL (< 200) LDL Cholesterol 74 mg/dL (<100) HDL Cholesterol 41 MG/DL (40-60) Cholesterol/HDL Ratio 3.3 (3.3-4.4) Stool Occult Blood Negative (NEGATIVE) Intake and Output 06/04/19 06/05/19 19:00 07:00 Intake Total 240 ml 320 ml Balance 240 ml 320 ml Intake Oral 240 ml 320 ml # Voids 2 2 Objective GENERAL: The patient is awake, responsive, in no acute distress. HEAD AND NECK: Pupils are equal and reactive to light. Extraocular movements intact. Neck was supple. No JVD. LUNGS: Good air entry. Bilateral air entry, No wheeze or rales. HEART: S1, S2. Regular rhythm. No Murmur or gallops. ABDOMEN: Soft, nondistended, nontender. Positive bowel sounds. EXTREMITIES: No cyanosis, clubbing, edema. Left upper extremity had AV fistula working with a thrill. NEUROLOGIC: Cranial nerves II through XII grossly intact. moving all the extremities, left side weakerness improving. Gait is unsteady.. Assessment/Plan Assessment/Plan ASSESSMENT: 1. Left-sided weakness, most likely secondary to small, acute infarct involving the right aspect of the splenium of the corpus callosum and adjacent [place] radiata and heterogeneous, enhancing, partially cystic 4.2 x 2.8 x 2.8 cm mass involving the right thalamus, right lateral ventricle and adjacent [place] radiata suspicious for primary SOAP BOILER neoplasm. 2. Hypertension. 3. End-stage renal disease, on hemodialysis. 4. Diabetes type 2. 5. Dyslipidemia. PLAN: On monitor unit. code status: Full code. DVT prophylaxis: SCD and heparin subcutaneous. Dr. Sales from Pulmonary Critical Care Dr. Liriano from Nephrology. Monitor laboratory. Discuss with patient and regarding MRI of brain result. PT / OT Mobility. Monitor blood glucose level. MRI Brain with contrast: Heterogeneous, enhancing, partially cystic 4.2 x 2.8 x 2.8 cm mass involving the right thalamus, right lateral ventricle and adjacent [place] radiata suspicious for primary SOAP BOILER neoplasm. Mild compression of the third ventricle without evidence of hydrocephalus. No evidence of acute hemorrhage. No additional lesions identified. Differential considerations include primary SOAP BOILER neoplasm such as a subependymoma or glioblastoma. Associated small, acute infarct involving the right aspect of the splenium of the corpus callosum and adjacent [place] radiata. Mac Gomez MD Jun 05, 2019 15:43
[2019-06-05 16:00] VITALS: BP 149/81
[2019-06-05] MEDS: Nitroglycerin Patch 0.4mg TDERMAL SCH (16:35)
--- NOTE | 2019-06-05 18:57 | NUR ---
NURSE NOTES: 1.8L fluid removed from hemodialysis
--- NOTE | 2019-06-05 19:40 | NUR ---
HAND-OFF: Report given to Hailey FLOREZ. Pt remains stable.
--- NOTE | 2019-06-05 19:46 | NUR ---
NURSE NOTES: Received report from GAUTAM Villegas. Patient is in bed, awake and responsive. Breathing regular and unlabored with no SOB noted at this time. Patient denies any pain or discomfort at this time. Patient is post dialysis and remains stable. IV is intact and saline locked at this time. Bed is in lowest position, breaks engaged, and call light within reach. Will continue to monitor.
[2019-06-05 20:00] VITALS: BP 128/75
[2019-06-05] MEDS: Atorvastatin 80mg tab ORAL SCH (21:32)
[2019-06-06] VITALS: BP 124/68
[2019-06-06 04:00] VITALS: BP 124/78
[2019-06-06] MEDS: Heparin 5000 units/ml inj SUBQ SCH ×3 (06:09→21:52)
[2019-06-06] MEDS: NovoLOG Insulin Flexpen SUBQ SCH ×4 (06:10→21:48)
--- NOTE | 2019-06-06 07:19 | NUR ---
HAND-OFF: Report given to GAUTAM Martinez. Patient is in stable condition, plan of care endorsed.
--- NOTE | 2019-06-06 07:30 | NUR ---
NURSE NOTES: Patient received from Cristela FLOREZ. Patient stable with no complaints of pain and no s/sx of distress. RR even and unlabored on RA. Pt told to call when he wants to void so that we can monitor his gait and maintain his safety. Pt verbalized understanding. Call light within reach, bed low and locked, side rails up x2. Will continue to monitor
[2019-06-06 08:00] VITALS: BP 143/74
--- NOTE | 2019-06-06 08:01 | Pulmonology Progress Note ---
Assessment/Plan Problems: (1) CVA (cerebral vascular accident) (2) Diabetes mellitus (3) ESRD (end stage renal disease) (4) History of hypertension Assessment/Plan doing better pt evaluation appreciated BP controlled Echo reviewed, EF wnl doppler of carotid artery reviewed, wnl MRI showing possible malignancy f/u Troponin level, Cardiology to see, still pending Subjective ROS Limited/Unobtainable: No Constitutional: Reports: no symptoms HEENT: Repors: no symptoms Respiratory: Reports: no symptoms Allergies: Coded Allergies: No Known Allergies (Unverified , 06/04/19) Objective Last 24 Hour Vital Signs Date Time Temp Pulse Resp B/P (MAP) Pulse Ox O2 Delivery O2 Flow Rate FiO2 06/06/19 04:00 68 06/06/19 04:00 98.5 77 18 124/78 (93) 98 06/06/19 00:00 71 06/06/19 00:00 97.6 76 18 124/68 (86) 98 06/05/19 21:33 80 128/75 06/05/19 21:00 Room Air 06/05/19 20:00 76 06/05/19 20:00 97.9 80 18 128/75 (92) 95 06/05/19 16:35 115/59 06/05/19 16:00 89 06/05/19 16:00 98.3 83 20 149/81 (103) 96 06/05/19 12:00 69 06/05/19 11:55 97.0 71 20 115/59 (77) 100 06/05/19 09:00 Room Air 06/05/19 08:46 71 120/64 06/05/19 08:46 71 120/64 06/05/19 08:00 69 06/05/19 08:00 97.0 71 20 120/64 (82) 97 Intake and Output 06/05/19 06/06/19 18:59 06:59 Intake Total 320 ml Output Total 1800 ml 1200 ml Balance -1480 ml -1200 ml Intake Oral 320 ml Output Urine Total 1200 ml Hemodialysis UF 1800 ml # Voids 2 # Bowel Movements 4 2 Objective General Appearance: WD/WN, no apparent distress, mild distress Lines, tubes and drains: central line HEENT: normocephalic, atraumatic Neck: non-tender, normal alignment Respiratory/Chest: chest wall non-tender, lungs clear Cardiovascular/Chest: normal peripheral pulses Abdomen: normal bowel sounds, non tender Genitourinary/Rectal: normal genital exam Extremities: normal range of motion Skin Exam: normal pigmentation Microbiology Date/Time Source Procedure Growth Status 06/04/19 04:38 Nasal Nares MRSA Culture - Final NO METHICILLIN RESISTANT STAPH AUREUS... Complete 06/04/19 04:38 Rectum - Final NO CARBAPENEM-RESISTANT ENTEROBACTERI... Complete 06/04/19 04:38 Rectum VRE Culture - Final NO VANCOMYCIN RESISTANT ENTEROCOCCUS ... Complete Laboratory Tests 06/05/19 09:00: Stool Occult Blood Negative 06/06/19 06:24: White Blood Count [Pending], Red Blood Count [Pending], Hemoglobin [Pending], Hematocrit [Pending], Mean Corpuscular Volume [Pending], Mean Corpuscular Hemoglobin [Pending], Mean Corpuscular Hemoglobin Concent [Pending], Red Cell Distribution Width [Pending], Platelet Count [Pending], Mean Platelet Volume [ Pending], Neutrophils (%) (Auto) [Pending], Lymphocytes (%) (Auto) [Pending], Monocytes (%) (Auto) [Pending], Eosinophils (%) (Auto) [Pending], Basophils (%) (Auto) [Pending], Erythrocyte Sedimentation Rate [Pending], Sodium Level [ Pending], Potassium Level [Pending], Chloride Level [Pending], Carbon Dioxide Level [Pending], Blood Urea Nitrogen [Pending], Creatinine [Pending], Estimat Glomerular Filtration Rate [Pending], Glucose Level [Pending], Calcium Level [ Pending], Phosphorus Level [Pending], Magnesium Level [Pending], Total Bilirubin [Pending], Aspartate Amino Transf (AST/SGOT) [Pending], Alanine Aminotransferase (ALT/SGPT) [Pending], Alkaline Phosphatase [Pending], Troponin I [Pending], Total Protein [Pending], Albumin [Pending], Globulin [Pending] Current Medications Medications (Trade) Dose Ordered Sig/Felice Route PRN Reason Start Time Stop Time Status Last Admin Dose Admin Acetaminophen (Tylenol) 650 mg Q4H PRN ORAL Mild Pain/Temp > 100.5 06/04/19 00:30 07/04/19 00:29 Amlodipine Besylate (Norvasc) 10 mg DAILY ORAL 06/05/19 09:00 07/04/19 08:59 06/05/19 08:46 Aspirin (ASA) 81 mg DAILY ORAL 06/04/19 09:00 07/04/19 08:59 06/05/19 08:46 Atorvastatin Calcium (Lipitor) 80 mg BEDTIME ORAL 06/04/19 21:00 07/04/19 20:59 06/05/19 21:32 Carvedilol (Coreg) 3.125 mg EVERY 12 HOURS ORAL 06/04/19 21:00 07/04/19 20:59 06/05/19 21:33 Clonidine HCl (Catapres Tab) 0.1 mg Q4H PRN ORAL SBP >160 06/04/19 00:30 07/04/19 00:29 06/04/19 11:27 Dextrose (Dextrose 50%) 25 ml Q30M PRN IV Hypoglycemia 06/04/19 13:15 07/04/19 13:14 Dextrose (Dextrose 50%) 50 ml Q30M PRN IV Hypoglycemia 06/04/19 13:15 07/04/19 13:14 Docusate Sodium (Colace) 100 mg TID ORAL 06/04/19 13:00 07/04/19 08:59 06/05/19 17:28 Gadobutrol (Gadavist) 7.5 mmol NOW PRN IV Radiology Procedure 06/04/19 13:30 06/08/19 13:28 Glipizide (Glucotrol) 5 mg BID ORAL 06/04/19 22:15 07/04/19 22:14 06/05/19 17:28 Heparin Sodium (Porcine) (Heparin 5000 units/ml) 5,000 units EVERY 8 HOURS SUBQ 06/04/19 10:00 07/04/19 09:59 06/06/19 06:09 Insulin Aspart (NovoLOG) BEFORE MEALS AND HS SUBQ 06/04/19 16:30 07/04/19 16:29 06/06/19 06:10 Nitroglycerin (Ntg) 1 patch Q24H TDERMAL 06/05/19 15:00 07/05/19 14:59 06/05/19 16:35 Ondansetron HCl (Zofran) 4 mg EVERY 4 HOURS PRN IVP Nausea & Vomiting 06/04/19 00:30 07/04/19 00:29 Pantoprazole (Protonix) 40 mg EVERY 12 HOURS ORAL 06/04/19 21:44 07/04/19 21:43 06/05/19 21:32 Savannah Sales MD Jun 06, 2019 08:01
[2019-06-06 08:03] LABS: EOSINOPHILS % (AUTO) 2.5 % (0.0-3.0); HEMATOCRIT 37.3 % (42.0-52.0); HEMOGLOBIN 12.5 G/DL (14.2-18.0); LYMPHOCYTES % (AUTO) 29.7 % (20.0-45.0); MEAN CORPUSCULAR VOLUME 90 FL (80-99); MONOCYTES % (AUTO) 9.6 % (1.0-10.0); NEUTROPHILS % (AUTO) 57.2 % (45.0-75.0); PLATELET COUNT 148 K/UL (150-450); RED BLOOD COUNT 4.15 M/UL (4.70-6.10); RED CELL DISTRIBUTION WIDTH 13.3 % (11.6-14.8); WHITE BLOOD COUNT 4.8 K/UL (4.8-10.8)
[2019-06-06 08:44] LABS: ALANINE AMINOTRANSFERASE 15 U/L (12-78); ALBUMIN 3.2 G/DL (3.4-5.0); ALBUMIN/GLOBULIN RATIO 0.9 (1.0-2.7); ALKALINE PHOSPHATASE 90 U/L (46-116); ANION GAP 9 mmol/L (5-15); ASPARTATE AMINO TRANSFERASE 19 U/L (15-37); BILIRUBIN,TOTAL 0.3 MG/DL (0.2-1.0); BLOOD UREA NITROGEN 41 mg/dL (7-18); CALCIUM 8.3 MG/DL (8.5-10.1); CARBON DIOXIDE 29 MMOL/L (21-32); CHLORIDE 99 MMOL/L (98-107); PHOSPHORUS 5.2 MG/DL (2.5-4.9); POTASSIUM 4.3 MMOL/L (3.5-5.1); SODIUM 137 MMOL/L (136-145)
[2019-06-06] MEDS: Docusate 100mg cap ORAL SCH ×3 (09:00→16:19)
[2019-06-06] MEDS: Aspirin Baby 81mg ORAL SCH (09:29)
[2019-06-06] MEDS: GlipiZIDE 5mg tab ORAL SCH ×2 (09:30→17:42)
--- NOTE | 2019-06-06 11:30 | NUR ---
NURSE NOTES: Dr. Gomez at bedside and aware of current troponin level.
[2019-06-06 12:00] VITALS: BP 137/80
--- NOTE | 2019-06-06 12:35 | Internal Med Progress Note ---
Subjective Physician Name Mac Gomez Attending Physician Mac Gomez MD Current Medications Medications (Trade) Dose Ordered Sig/Felice Route PRN Reason Start Time Stop Time Status Last Admin Dose Admin Acetaminophen (Tylenol) 650 mg Q4H PRN ORAL Mild Pain/Temp > 100.5 06/04/19 00:30 07/04/19 00:29 Amlodipine Besylate (Norvasc) 10 mg DAILY ORAL 06/05/19 09:00 07/04/19 08:59 06/06/19 09:29 Aspirin (ASA) 81 mg DAILY ORAL 06/04/19 09:00 07/04/19 08:59 06/06/19 09:29 Atorvastatin Calcium (Lipitor) 80 mg BEDTIME ORAL 06/04/19 21:00 07/04/19 20:59 06/05/19 21:32 Carvedilol (Coreg) 3.125 mg EVERY 12 HOURS ORAL 06/04/19 21:00 07/04/19 20:59 06/06/19 09:30 Clonidine HCl (Catapres Tab) 0.1 mg Q4H PRN ORAL SBP >160 06/04/19 00:30 07/04/19 00:29 06/04/19 11:27 Dextrose (Dextrose 50%) 25 ml Q30M PRN IV Hypoglycemia 06/04/19 13:15 07/04/19 13:14 Dextrose (Dextrose 50%) 50 ml Q30M PRN IV Hypoglycemia 06/04/19 13:15 07/04/19 13:14 Docusate Sodium (Colace) 100 mg TID ORAL 06/04/19 13:00 07/04/19 08:59 06/05/19 17:28 Gadobutrol (Gadavist) 7.5 mmol NOW PRN IV Radiology Procedure 06/04/19 13:30 06/08/19 13:28 Glipizide (Glucotrol) 5 mg BID ORAL 06/04/19 22:15 07/04/19 22:14 06/06/19 09:30 Heparin Sodium (Porcine) (Heparin 5000 units/ml) 5,000 units EVERY 8 HOURS SUBQ 06/04/19 10:00 07/04/19 09:59 06/06/19 06:09 Insulin Aspart (NovoLOG) BEFORE MEALS AND HS SUBQ 06/04/19 16:30 07/04/19 16:29 06/06/19 11:50 Nitroglycerin (Ntg) 1 patch Q24H TDERMAL 06/05/19 15:00 07/05/19 14:59 06/05/19 16:35 Ondansetron HCl (Zofran) 4 mg EVERY 4 HOURS PRN IVP Nausea & Vomiting 06/04/19 00:30 07/04/19 00:29 Pantoprazole (Protonix) 40 mg EVERY 12 HOURS ORAL 06/04/19 21:44 07/04/19 21:43 06/06/19 09:29 Allergies: Coded Allergies: No Known Allergies (Unverified , 06/04/19) Subjective awake, alert, responsive, NAD, No CP or SOB, Left side weakness improving, walking with PT. Objective Last Vital Signs Date Time Temp Pulse Resp B/P (MAP) Pulse Ox O2 Delivery O2 Flow Rate FiO2 06/06/19 09:30 70 143/74 06/06/19 09:00 Room Air 06/06/19 08:00 98.2 18 99 Laboratory Tests Test 06/06/19 06:24 White Blood Count 4.8 K/UL (4.8-10.8) Red Blood Count 4.15 M/UL (4.70-6.10) L Hemoglobin 12.5 G/DL (14.2-18.0) L Hematocrit 37.3 % (42.0-52.0) L Mean Corpuscular Volume 90 FL (80-99) Mean Corpuscular Hemoglobin 30.1 PG (27.0-31.0) Mean Corpuscular Hemoglobin Concent 33.5 G/DL (32.0-36.0) Red Cell Distribution Width 13.3 % (11.6-14.8) Platelet Count 148 K/UL (150-450) L Mean Platelet Volume 7.3 FL (6.5-10.1) Neutrophils (%) (Auto) 57.2 % (45.0-75.0) Lymphocytes (%) (Auto) 29.7 % (20.0-45.0) Monocytes (%) (Auto) 9.6 % (1.0-10.0) Eosinophils (%) (Auto) 2.5 % (0.0-3.0) Basophils (%) (Auto) 1.0 % (0.0-2.0) Erythrocyte Sedimentation Rate 25 MM/HR (0-20) H Sodium Level 137 MMOL/L (136-145) Potassium Level 4.3 MMOL/L (3.5-5.1) Chloride Level 99 MMOL/L (98-107) Carbon Dioxide Level 29 MMOL/L (21-32) Anion Gap 9 mmol/L (5-15) Blood Urea Nitrogen 41 mg/dL (7-18) H Creatinine 10.0 MG/DL (0.55-1.30) H Estimat Glomerular Filtration Rate 5.5 mL/min (>60) Glucose Level 250 MG/DL (74-106) H Calcium Level 8.3 MG/DL (8.5-10.1) L Phosphorus Level 5.2 MG/DL (2.5-4.9) H Magnesium Level 2.1 MG/DL (1.8-2.4) Total Bilirubin 0.3 MG/DL (0.2-1.0) Aspartate Amino Transf (AST/SGOT) 19 U/L (15-37) Alanine Aminotransferase (ALT/SGPT) 15 U/L (12-78) Alkaline Phosphatase 90 U/L (46-116) Troponin I 0.082 ng/mL (0.000-0.056) Total Protein 6.9 G/DL (6.4-8.2) Albumin 3.2 G/DL (3.4-5.0) L Globulin 3.7 g/dL Albumin/Globulin Ratio 0.9 (1.0-2.7) L Hepatitis B Surface Antigen Pending Microbiology Date/Time Source Procedure Growth Status 06/04/19 04:38 Nasal Nares MRSA Culture - Final NO METHICILLIN RESISTANT STAPH AUREUS... Complete 06/04/19 04:38 Rectum - Final NO CARBAPENEM-RESISTANT ENTEROBACTERI... Complete 06/04/19 04:38 Rectum VRE Culture - Final NO VANCOMYCIN RESISTANT ENTEROCOCCUS ... Complete Intake and Output 06/05/19 06/06/19 19:00 07:00 Intake Total 320 ml Output Total 1800 ml 1200 ml Balance -1480 ml -1200 ml Intake Oral 320 ml Output Urine Total 1200 ml Hemodialysis UF 1800 ml # Voids 2 # Bowel Movements 4 2 Objective GENERAL: The patient is awake, responsive, in no acute distress. HEAD AND NECK: Pupils are equal and reactive to light. Extraocular movements intact. Neck was supple. No JVD. LUNGS: Good air entry. Bilateral air entry, No wheeze or rales. HEART: S1, S2. Regular rhythm. No Murmur or gallops. ABDOMEN: Soft, nondistended, nontender. Positive bowel sounds. EXTREMITIES: No cyanosis, clubbing, edema. Left upper extremity had AV fistula working with a thrill. NEUROLOGIC: Cranial nerves II through XII grossly intact. moving all the extremities, left side weakness improving. Gait is unsteady. Assessment/Plan Assessment/Plan ASSESSMENT: 1. Left-sided weakness, most likely secondary to small, acute infarct involving the right aspect of the splenium of the corpus callosum and adjacent [place] radiata and heterogeneous, enhancing, partially cystic 4.2 x 2.8 x 2.8 cm mass involving the right thalamus, right lateral ventricle and adjacent [place] radiata suspicious for primary [employer] neoplasm. 2. Hypertension. 3. End-stage renal disease, on hemodialysis. 4. Diabetes type 2. 5. Dyslipidemia. PLAN: On monitor unit. code status: Full code. DVT prophylaxis: SCD and heparin subcutaneous. Dr. Sales from Pulmonary Critical Care Dr. Liriano from Nephrology. Monitor laboratory. Discuss with patient and regarding MRI of brain result. PT / OT Mobility. Monitor blood glucose level. DC Home in AM. MRI Brain with contrast: Heterogeneous, enhancing, partially cystic 4.2 x 2.8 x 2.8 cm mass involving the right thalamus, right lateral ventricle and adjacent [place] radiata suspicious for primary [employer] neoplasm. Mild compression of the third ventricle without evidence of hydrocephalus. No evidence of acute hemorrhage. No additional lesions identified. Differential considerations include primary [employer] neoplasm such as a subependymoma or glioblastoma. Associated small, acute infarct involving the right aspect of the splenium of the corpus callosum and adjacent [place] radiata. Mac Gomez MD Jun 06, 2019 12:35
[2019-06-06] MEDS: Nitroglycerin Patch 0.4mg TDERMAL SCH (14:04)
--- NOTE | 2019-06-06 15:39 | Nephrology Progress Note ---
Assessment/Plan Problem List: (1) ESRD (end stage renal disease) (2) History of hypertension (3) CVA (cerebral vascular accident) Assessment: left sided weakness Assessment ESRD CVA affecting Left side HTN DM Plan HD 06/05 next 06/08 check labs keep BP and BS in check per consultants Subjective ROS Limited/Unobtainable: No Constitutional: Reports: malaise Objective Objective Last 24 Hour Vital Signs Date Time Temp Pulse Resp B/P (MAP) Pulse Ox O2 Delivery O2 Flow Rate FiO2 06/06/19 14:04 137/80 06/06/19 12:00 65 06/06/19 12:00 98.0 71 18 137/80 (99) 99 06/06/19 09:30 70 143/74 06/06/19 09:29 70 143/74 06/06/19 09:00 Room Air 06/06/19 08:00 98.2 70 18 143/74 (97) 99 06/06/19 08:00 79 06/06/19 04:00 68 06/06/19 04:00 98.5 77 18 124/78 (93) 98 06/06/19 00:00 71 06/06/19 00:00 97.6 76 18 124/68 (86) 98 06/05/19 21:33 80 128/75 06/05/19 21:00 Room Air 06/05/19 20:00 76 06/05/19 20:00 97.9 80 18 128/75 (92) 95 06/05/19 16:35 115/59 06/05/19 16:00 89 06/05/19 16:00 98.3 83 20 149/81 (103) 96 Intake and Output 06/05/19 06/06/19 19:00 07:00 Intake Total 320 ml Output Total 1800 ml 1200 ml Balance -1480 ml -1200 ml Intake Oral 320 ml Output Urine Total 1200 ml Hemodialysis UF 1800 ml # Voids 2 # Bowel Movements 4 2 Laboratory Tests 06/06/19 06:24: White Blood Count 4.8, Red Blood Count 4.15L, Hemoglobin 12.5L, Hematocrit 37.3L , Mean Corpuscular Volume 90, Mean Corpuscular Hemoglobin 30.1, Mean Corpuscular Hemoglobin Concent 33.5, Red Cell Distribution Width 13.3, Platelet Count 148L, Mean Platelet Volume 7.3, Neutrophils (%) (Auto) 57.2, Lymphocytes ( %) (Auto) 29.7, Monocytes (%) (Auto) 9.6, Eosinophils (%) (Auto) 2.5, Basophils (%) (Auto) 1.0, Erythrocyte Sedimentation Rate 25H, Sodium Level 137, Potassium Level 4.3, Chloride Level 99, Carbon Dioxide Level 29, Anion Gap 9, Blood Urea Nitrogen 41H, Creatinine 10.0H, Estimat Glomerular Filtration Rate 5.5, Glucose Level 250H, Calcium Level 8.3L, Phosphorus Level 5.2H, Magnesium Level 2.1, Total Bilirubin 0.3, Aspartate Amino Transf (AST/SGOT) 19, Alanine Aminotransferase (ALT/SGPT) 15, Alkaline Phosphatase 90, Troponin I 0.082H, Total Protein 6.9, Albumin 3.2L, Globulin 3.7, Albumin/Globulin Ratio 0.9L, Hepatitis B Surface Antigen [Pending] Height (Feet): 5 Height (Inches): 7.00 Weight (Pounds): 184 General Appearance: no apparent distress Cardiovascular: normal rate Respiratory/Chest: lungs clear Abdomen: soft Neurologic: other - left side stronger Samir Liriano MD Jun 06, 2019 15:39
[2019-06-06 16:00] VITALS: BP 124/74
--- NOTE | 2019-06-06 19:16 | NUR ---
HAND-OFF: Report given to Elif Gutierrez RN. Patient stable.
[2019-06-06 20:00] VITALS: BP 109/63
--- NOTE | 2019-06-06 20:00 | NUR ---
NURSE NOTES: RECEIVED PATIENT LYING IN BED, AWAKE, ALERT/ORIENTED X3, VERBALLY RESPONSIVE, DENIES PAIN, NO SIGNS AND SYMPTOMS OF ACUTE CARDIO RESPIRATORY DISTRESS/SHORTNESS OF BREATH, DENIES CHEST PAIN, NO EDEMA NOTED. PATIENT NOTED WITH LEFT SIDE WEAKNESS. ABDOMEN SOFT/NON DISTENDED/AUDIBLE BOWEL SOUNDS, NO REPORT OF GI DISCOMFORT, NO N/V. SIDE RAILS UP X3/BED IN LOWEST POSITION FOR SAFETY. ENCOURAGED PATIENT TO UTILIZE CALL LIGHT FOR ASSISTANCE, VERBALIZE UNDERSTANDING. BED IN LOWEST POSITION FOR SAFETY. BED ALARM ACTIVATED FOR PREVENTIVE MEASURES, CONTINUE WITH CURRENT PLAN OF CARE. NAD.
[2019-06-06] MEDS: Atorvastatin 80mg tab ORAL SCH (21:23)
[2019-06-07] VITALS: BP 118/66
--- NOTE | 2019-06-07 | NUR ---
NURSE NOTES: RESTING WELL, NO SIGNS AND SYMPTOMS OF DISTRESS, CONTINUE WITH CURRENT PLAN OF CARE.
[2019-06-07 04:00] VITALS: BP 110/65
[2019-06-07] MEDS: Heparin 5000 units/ml inj SUBQ SCH (06:01)
[2019-06-07] MEDS: NovoLOG Insulin Flexpen SUBQ SCH ×3 (06:01→17:14)
--- NOTE | 2019-06-07 06:10 | NUR ---
NURSE NOTES: BLOOD GLUCOSE LEVEL MONITORED VIA GLUCOMETER WITH RESULT 100MG/DL, ASYMPTOMATIC, WNL, NO INSULIN COVERAGE.
--- NOTE | 2019-06-07 07:06 | NUR ---
HAND-OFF: Report given to Cintia MANDUJANO RN.
[2019-06-07 07:26] LABS: BASOPHILS % (AUTO) 1.2 % (0.0-2.0); EOSINOPHILS % (AUTO) 2.1 % (0.0-3.0); HEMATOCRIT 36.6 % (42.0-52.0); HEMOGLOBIN 12.3 G/DL (14.2-18.0); LYMPHOCYTES % (AUTO) 32.6 % (20.0-45.0); MEAN CORPUSCULAR VOLUME 90 FL (80-99); MONOCYTES % (AUTO) 9.7 % (1.0-10.0); NEUTROPHILS % (AUTO) 54.4 % (45.0-75.0); PLATELET COUNT 154 K/UL (150-450); RED BLOOD COUNT 4.08 M/UL (4.70-6.10); RED CELL DISTRIBUTION WIDTH 13.1 % (11.6-14.8)
--- NOTE | 2019-06-07 07:36 | NUR ---
NURSE NOTES: Patient received from Elif Gutierrez RN. Patient stable AOx4 sitting up in bed. No s/sx of distress and no complaints of pain. RR even and unlabored on RA. Call light within reach, bed low and locked, side rails up x2. Will continue to monitor
--- NOTE | 2019-06-07 07:50 | NUR ---
reported with troponin 0.084, message sent to Dr Gomez. Addendum: 06/07/19 at 0939 by GATO MANDUJANO RN Per Dr. Jason forte to transfer to med/surg
[2019-06-07 08:00] VITALS: BP 121/73
[2019-06-07 08:09] LABS: ALANINE AMINOTRANSFERASE 28 U/L (12-78); ALBUMIN 3.1 G/DL (3.4-5.0); ALKALINE PHOSPHATASE 89 U/L (46-116); ANION GAP 13 mmol/L (5-15); ASPARTATE AMINO TRANSFERASE 24 U/L (15-37); BILIRUBIN,TOTAL 0.3 MG/DL (0.2-1.0); BLOOD UREA NITROGEN 49 mg/dL (7-18); CALCIUM 8.2 MG/DL (8.5-10.1); CARBON DIOXIDE 28 MMOL/L (21-32); CHLORIDE 101 MMOL/L (98-107); CREATININE 12.4 MG/DL (0.55-1.30); PHOSPHORUS 6.2 MG/DL (2.5-4.9); POTASSIUM 3.9 MMOL/L (3.5-5.1); SODIUM 142 MMOL/L (136-145)
[2019-06-07] MEDS: Aspirin Baby 81mg ORAL SCH (08:52)
[2019-06-07] MEDS: GlipiZIDE 5mg tab ORAL SCH (08:53)
[2019-06-07] MEDS: Docusate 100mg cap ORAL SCH ×3 (08:53→17:12)
--- NOTE | 2019-06-07 09:39 | NUR ---
HAND-OFF: Report given to Stephanie FLOREZ. Patient stable. Call light within reach. Bed low and locked with side rails upx2. All belongings with patient except for wallet. Per pt, may have it.
--- NOTE | 2019-06-07 09:40 | NUR ---
NURSE NOTES: Received report and patient from GAUTAM Rizo (Gabby). Patient A&Ox4. On room air, no signs of distress or labored breathing. IV intact, patent, and saline locked. Patient has left upper arm AV shunt. Bed in lowest position with call light in reach. Side rails up x3. All belongings accounted on belongings list except wallet. Patient stated his may have it. RN asked patient to contact his to confirm. Addendum: 06/07/19 at 1011 by Lynda Ann RN Patient's confirmed she took wallet home. Edited belongings list to reflect this. Charge nurse aware.
[2019-06-07 12:00] VITALS: BP 127/74
[2019-06-07] MEDS ORDERED: Gadavist 7.5mMol/7.5ml vial IV PRN (13:30)
[2019-06-07] MEDS ORDERED: Heparin 5000 units/ml inj SUBQ SCH (14:00)
[2019-06-07] MEDS ORDERED: LIPITOR80 MG ORAL (14:07)
[2019-06-07] MEDS ORDERED: ASPIRIN81 MG ORAL (14:07)
[2019-06-07] MEDS ORDERED: COREG3.125 MG ORAL (14:07)
[2019-06-07] MEDS ORDERED: RENVELA800 MG ORAL (14:07)
[2019-06-07] MEDS ORDERED: GLIPIZIDE5 MG ORAL (14:07)
[2019-06-07] MEDS ORDERED: NORVASC10 MG ORAL (14:07)
--- NOTE | 2019-06-07 14:08 | Internal Med Progress Note ---
Subjective Physician Name Mac Gomez Attending Physician Mac Gomez MD Current Medications Medications (Trade) Dose Ordered Sig/Felice Route PRN Reason Start Time Stop Time Status Last Admin Dose Admin Acetaminophen (Tylenol) 650 mg Q4H PRN ORAL Mild Pain/Temp > 100.5 06/07/19 09:39 07/07/19 09:38 Amlodipine Besylate (Norvasc) 10 mg DAILY ORAL 06/08/19 09:00 07/04/19 08:59 Aspirin (ASA) 81 mg DAILY ORAL 06/08/19 09:00 07/04/19 08:59 Atorvastatin Calcium (Lipitor) 80 mg BEDTIME ORAL 06/07/19 21:00 07/04/19 20:59 Carvedilol (Coreg) 3.125 mg EVERY 12 HOURS ORAL 06/07/19 21:00 07/04/19 20:59 Clonidine HCl (Catapres Tab) 0.1 mg Q4H PRN ORAL SBP >160 06/07/19 12:30 07/04/19 00:29 Dextrose (Dextrose 50%) 25 ml Q30M PRN IV Hypoglycemia 06/07/19 09:45 07/04/19 13:14 Dextrose (Dextrose 50%) 50 ml Q30M PRN IV Hypoglycemia 06/07/19 09:45 07/04/19 13:14 Docusate Sodium (Colace) 100 mg TID ORAL 06/07/19 13:00 07/04/19 08:59 Gadobutrol (Gadavist) 7.5 mmol NOW PRN IV Radiology Procedure 06/07/19 13:30 06/08/19 13:28 Glipizide (Glucotrol) 5 mg BID ORAL 06/07/19 18:00 07/04/19 22:14 Heparin Sodium (Porcine) (Heparin 5000 units/ml) 5,000 units EVERY 8 HOURS SUBQ 06/07/19 14:00 07/04/19 09:59 06/07/19 13:43 Insulin Aspart (NovoLOG) BEFORE MEALS AND HS SUBQ 06/07/19 11:30 07/04/19 16:29 06/07/19 12:02 Nitroglycerin (Ntg) 1 patch Q24H TDERMAL 06/07/19 15:00 07/05/19 14:59 Ondansetron HCl (Zofran) 4 mg Q4H PRN IVP Nausea & Vomiting 06/07/19 10:00 07/07/19 09:59 Pantoprazole (Protonix) 40 mg EVERY 12 HOURS ORAL 06/07/19 21:00 07/04/19 21:43 Sevelamer Carbonate (Renvela) 1,600 mg THREE TIMES A DAY ORAL 06/07/19 13:00 07/07/19 12:59 06/07/19 13:42 Allergies: Coded Allergies: No Known Allergies (Unverified , 06/04/19) Subjective awake, alert, responsive, NAD, No CP or SOB, Left side weakness improving, go up in a chair, is at the bedside.. Objective Last Vital Signs Date Time Temp Pulse Resp B/P (MAP) Pulse Ox O2 Delivery O2 Flow Rate FiO2 06/07/19 12:00 98.0 76 19 127/74 (91) 98 06/07/19 09:00 Room Air Laboratory Tests Test 06/07/19 05:40 White Blood Count 5.0 K/UL (4.8-10.8) Red Blood Count 4.08 M/UL (4.70-6.10) L Hemoglobin 12.3 G/DL (14.2-18.0) L Hematocrit 36.6 % (42.0-52.0) L Mean Corpuscular Volume 90 FL (80-99) Mean Corpuscular Hemoglobin 30.3 PG (27.0-31.0) Mean Corpuscular Hemoglobin Concent 33.7 G/DL (32.0-36.0) Red Cell Distribution Width 13.1 % (11.6-14.8) Platelet Count 154 K/UL (150-450) Mean Platelet Volume 7.3 FL (6.5-10.1) Neutrophils (%) (Auto) 54.4 % (45.0-75.0) Lymphocytes (%) (Auto) 32.6 % (20.0-45.0) Monocytes (%) (Auto) 9.7 % (1.0-10.0) Eosinophils (%) (Auto) 2.1 % (0.0-3.0) Basophils (%) (Auto) 1.2 % (0.0-2.0) Erythrocyte Sedimentation Rate 21 MM/HR (0-20) H Sodium Level 142 MMOL/L (136-145) Potassium Level 3.9 MMOL/L (3.5-5.1) Chloride Level 101 MMOL/L (98-107) Carbon Dioxide Level 28 MMOL/L (21-32) Anion Gap 13 mmol/L (5-15) Blood Urea Nitrogen 49 mg/dL (7-18) H Creatinine 12.4 MG/DL (0.55-1.30) H Estimat Glomerular Filtration Rate 4.3 mL/min (>60) Glucose Level 104 MG/DL (74-106) # Calcium Level 8.2 MG/DL (8.5-10.1) L Phosphorus Level 6.2 MG/DL (2.5-4.9) H Magnesium Level 1.9 MG/DL (1.8-2.4) Total Bilirubin 0.3 MG/DL (0.2-1.0) Aspartate Amino Transf (AST/SGOT) 24 U/L (15-37) Alanine Aminotransferase (ALT/SGPT) 28 U/L (12-78) Alkaline Phosphatase 89 U/L (46-116) Troponin I 0.084 ng/mL (0.000-0.056) Total Protein 6.3 G/DL (6.4-8.2) L Albumin 3.1 G/DL (3.4-5.0) L Globulin 3.2 g/dL Albumin/Globulin Ratio 1.0 (1.0-2.7) Intake and Output 06/06/19 06/07/19 19:00 07:00 Intake Total 720 ml 360 ml Balance 720 ml 360 ml Intake Oral 720 ml 360 ml Objective GENERAL: The patient is awake, responsive, in no acute distress. HEAD AND NECK: Pupils are equal and reactive to light. Extraocular movements intact. Neck was supple. No JVD. LUNGS: Good air entry. Bilateral air entry, No wheeze or rales. HEART: S1, S2. Regular rhythm. No Murmur or gallops. ABDOMEN: Soft, nondistended, nontender. Positive bowel sounds. EXTREMITIES: No cyanosis, clubbing, edema. Left upper extremity had AV fistula working with a thrill. NEUROLOGIC: Cranial nerves II through XII grossly intact. moving all the extremities, left side weakness improving. Gait is unsteady. Assessment/Plan Assessment/Plan ASSESSMENT: 1. Left-sided weakness, most likely secondary to small, acute infarct involving the right aspect of the splenium of the corpus callosum and adjacent [place] radiata and heterogeneous, enhancing, partially cystic 4.2 x 2.8 x 2.8 cm mass involving the right thalamus, right lateral ventricle and adjacent [place] radiata suspicious for primary [employer] neoplasm. 2. Hypertension. 3. End-stage renal disease, on hemodialysis. 4. Diabetes type 2. 5. Dyslipidemia. PLAN: On monitor unit. code status: Full code. DVT prophylaxis: SCD and heparin subcutaneous. Dr. Sales from Pulmonary Critical Care Dr. Liriano from Nephrology. Monitor laboratory. Discuss with patient and regarding MRI of brain result. PT / OT Mobility. Monitor blood glucose level. DC Home today, Advised the patient to call my office make an appointment for Saturday this week. MRI Brain with contrast: Heterogeneous, enhancing, partially cystic 4.2 x 2.8 x 2.8 cm mass involving the right thalamus, right lateral ventricle and adjacent [place] radiata suspicious for primary [employer] neoplasm. Mild compression of the third ventricle without evidence of hydrocephalus. No evidence of acute hemorrhage. No additional lesions identified. Differential considerations include primary [employer] neoplasm such as a subependymoma or glioblastoma. Associated small, acute infarct involving the right aspect of the splenium of the corpus callosum and adjacent [place] radiata. Mac Gomez MD Jun 07, 2019 14:08
[2019-06-07] MEDS ORDERED: Nitroglycerin Patch 0.4mg TDERMAL SCH (15:00)
--- NOTE | 2019-06-07 15:33 | Nephrology Progress Note ---
Assessment/Plan Problem List: (1) ESRD (end stage renal disease) (2) History of hypertension (3) CVA (cerebral vascular accident) Assessment: left sided weakness Assessment ESRD CVA affecting Left side HTN DM Plan HD 06/05 next 06/08 check labs keep BP and BS in check per consultants Subjective Constitutional: Reports: malaise Objective Objective Last 24 Hour Vital Signs Date Time Temp Pulse Resp B/P (MAP) Pulse Ox O2 Delivery O2 Flow Rate FiO2 06/07/19 12:00 98.0 76 19 127/74 (91) 98 06/07/19 09:00 Room Air 06/07/19 08:54 73 121/73 06/07/19 08:52 73 121/73 06/07/19 08:00 97.4 73 18 121/73 (89) 98 06/07/19 04:00 97.2 74 18 110/65 (80) 97 06/07/19 00:00 98.0 71 18 118/66 (83) 98 06/06/19 21:00 62 96/54 06/06/19 21:00 Room Air 06/06/19 20:00 98.1 73 18 109/63 (78) 98 06/06/19 16:00 70 06/06/19 16:00 98.3 73 18 124/74 (91) 99 Intake and Output 06/06/19 06/07/19 19:00 07:00 Intake Total 720 ml 360 ml Balance 720 ml 360 ml Intake Oral 720 ml 360 ml Laboratory Tests 06/07/19 05:40: White Blood Count 5.0, Red Blood Count 4.08L, Hemoglobin 12.3L, Hematocrit 36.6L , Mean Corpuscular Volume 90, Mean Corpuscular Hemoglobin 30.3, Mean Corpuscular Hemoglobin Concent 33.7, Red Cell Distribution Width 13.1, Platelet Count 154, Mean Platelet Volume 7.3, Neutrophils (%) (Auto) 54.4, Lymphocytes (% ) (Auto) 32.6, Monocytes (%) (Auto) 9.7, Eosinophils (%) (Auto) 2.1, Basophils ( %) (Auto) 1.2, Erythrocyte Sedimentation Rate 21H, Sodium Level 142, Potassium Level 3.9, Chloride Level 101, Carbon Dioxide Level 28, Anion Gap 13, Blood Urea Nitrogen 49H, Creatinine 12.4H, Estimat Glomerular Filtration Rate 4.3, Glucose Level 104#, Calcium Level 8.2L, Phosphorus Level 6.2H, Magnesium Level 1.9, Total Bilirubin 0.3, Aspartate Amino Transf (AST/SGOT) 24, Alanine Aminotransferase (ALT/SGPT) 28, Alkaline Phosphatase 89, Troponin I 0.084H, Total Protein 6.3L, Albumin 3.1L, Globulin 3.2, Albumin/Globulin Ratio 1.0 Height (Feet): 5 Height (Inches): 7.00 Weight (Pounds): 184 General Appearance: no apparent distress Cardiovascular: normal rate Respiratory/Chest: lungs clear Abdomen: soft Samir Liriano MD Jun 07, 2019 15:33
--- NOTE | 2019-06-07 15:41 | Pulmonology Progress Note ---
Assessment/Plan Problems: (1) CVA (cerebral vascular accident) (2) Diabetes mellitus (3) ESRD (end stage renal disease) (4) History of hypertension Assessment/Plan doing better pt evaluation appreciated BP controlled Echo reviewed, EF wnl doppler of carotid artery reviewed, wnl MRI showing possible malignancy f/u Troponin level, Cardiology to see, still pending Subjective ROS Limited/Unobtainable: No Constitutional: Reports: no symptoms HEENT: Repors: no symptoms Allergies: Coded Allergies: No Known Allergies (Unverified , 06/04/19) Objective Last 24 Hour Vital Signs Date Time Temp Pulse Resp B/P (MAP) Pulse Ox O2 Delivery O2 Flow Rate FiO2 06/07/19 12:00 98.0 76 19 127/74 (91) 98 06/07/19 09:00 Room Air 06/07/19 08:54 73 121/73 06/07/19 08:52 73 121/73 06/07/19 08:00 97.4 73 18 121/73 (89) 98 06/07/19 04:00 97.2 74 18 110/65 (80) 97 06/07/19 00:00 98.0 71 18 118/66 (83) 98 06/06/19 21:00 62 96/54 06/06/19 21:00 Room Air 06/06/19 20:00 98.1 73 18 109/63 (78) 98 06/06/19 16:00 70 06/06/19 16:00 98.3 73 18 124/74 (91) 99 Intake and Output 06/06/19 06/07/19 19:00 07:00 Intake Total 720 ml 360 ml Balance 720 ml 360 ml Intake Oral 720 ml 360 ml Objective General Appearance: WD/WN, no apparent distress, mild distress Lines, tubes and drains: central line HEENT: normocephalic, atraumatic Neck: non-tender, normal alignment Respiratory/Chest: chest wall non-tender, lungs clear Cardiovascular/Chest: normal peripheral pulses Abdomen: normal bowel sounds, non tender Genitourinary/Rectal: normal genital exam Extremities: normal range of motion Skin Exam: normal pigmentation Laboratory Tests 06/07/19 05:40: White Blood Count 5.0, Red Blood Count 4.08L, Hemoglobin 12.3L, Hematocrit 36.6L , Mean Corpuscular Volume 90, Mean Corpuscular Hemoglobin 30.3, Mean Corpuscular Hemoglobin Concent 33.7, Red Cell Distribution Width 13.1, Platelet Count 154, Mean Platelet Volume 7.3, Neutrophils (%) (Auto) 54.4, Lymphocytes (% ) (Auto) 32.6, Monocytes (%) (Auto) 9.7, Eosinophils (%) (Auto) 2.1, Basophils ( %) (Auto) 1.2, Erythrocyte Sedimentation Rate 21H, Sodium Level 142, Potassium Level 3.9, Chloride Level 101, Carbon Dioxide Level 28, Anion Gap 13, Blood Urea Nitrogen 49H, Creatinine 12.4H, Estimat Glomerular Filtration Rate 4.3, Glucose Level 104#, Calcium Level 8.2L, Phosphorus Level 6.2H, Magnesium Level 1.9, Total Bilirubin 0.3, Aspartate Amino Transf (AST/SGOT) 24, Alanine Aminotransferase (ALT/SGPT) 28, Alkaline Phosphatase 89, Troponin I 0.084H, Total Protein 6.3L, Albumin 3.1L, Globulin 3.2, Albumin/Globulin Ratio 1.0 Current Medications Medications (Trade) Dose Ordered Sig/Felice Route PRN Reason Start Time Stop Time Status Last Admin Dose Admin Acetaminophen (Tylenol) 650 mg Q4H PRN ORAL Mild Pain/Temp > 100.5 06/07/19 09:39 07/07/19 09:38 Amlodipine Besylate (Norvasc) 10 mg DAILY ORAL 06/08/19 09:00 07/04/19 08:59 Aspirin (ASA) 81 mg DAILY ORAL 06/08/19 09:00 07/04/19 08:59 Atorvastatin Calcium (Lipitor) 80 mg BEDTIME ORAL 06/07/19 21:00 07/04/19 20:59 Carvedilol (Coreg) 3.125 mg EVERY 12 HOURS ORAL 06/07/19 21:00 07/04/19 20:59 Clonidine HCl (Catapres Tab) 0.1 mg Q4H PRN ORAL SBP >160 06/07/19 12:30 07/04/19 00:29 Dextrose (Dextrose 50%) 25 ml Q30M PRN IV Hypoglycemia 06/07/19 09:45 07/04/19 13:14 Dextrose (Dextrose 50%) 50 ml Q30M PRN IV Hypoglycemia 06/07/19 09:45 07/04/19 13:14 Docusate Sodium (Colace) 100 mg TID ORAL 06/07/19 13:00 07/04/19 08:59 Gadobutrol (Gadavist) 7.5 mmol NOW PRN IV Radiology Procedure 06/07/19 13:30 06/08/19 13:28 Glipizide (Glucotrol) 5 mg BID ORAL 06/07/19 18:00 07/04/19 22:14 Heparin Sodium (Porcine) (Heparin 5000 units/ml) 5,000 units EVERY 8 HOURS SUBQ 06/07/19 14:00 07/04/19 09:59 06/07/19 13:43 Insulin Aspart (NovoLOG) BEFORE MEALS AND HS SUBQ 06/07/19 11:30 07/04/19 16:29 06/07/19 12:02 Nitroglycerin (Ntg) 1 patch Q24H TDERMAL 06/07/19 15:00 07/05/19 14:59 Ondansetron HCl (Zofran) 4 mg Q4H PRN IVP Nausea & Vomiting 06/07/19 10:00 07/07/19 09:59 Pantoprazole (Protonix) 40 mg EVERY 12 HOURS ORAL 06/07/19 21:00 07/04/19 21:43 Sevelamer Carbonate (Renvela) 1,600 mg THREE TIMES A DAY ORAL 06/07/19 13:00 07/07/19 12:59 06/07/19 13:42 Savannah Sales MD Jun 07, 2019 15:41
[2019-06-07 16:00] VITALS: BP 130/77
--- NOTE | 2019-06-07 17:08 | NUR ---
NURSE NOTES: Discharge order noted. Dr. Gomez noted [facility] as desired home health agency to follow patient. [facility] called, spoke to George who verified that patient can be followed by agency. Patient notified.
[2019-06-07] MEDS ORDERED: GlipiZIDE 5mg tab ORAL SCH (18:00)
--- NOTE | 2019-06-07 19:00 | NUR ---
NURSE NOTES: Patient discharged home via in private car. Discharge protocol completed. In stable condition. Patient reminded that [facility] with follow up with him and to make an appointment with Dr. Gomez's office. IV removed and ID band removed. Charge nurse aware.
[2019-06-07] MEDS ORDERED: Atorvastatin 80mg tab ORAL SCH (21:00)
--- NOTE | 2019-06-07 21:02 | Discharge Summary ---
Discharge Summary Discharge Summary _ DATE OF ADMISSION: 06/03/2019 DATE OF DISCHARGE: 06/07/2019 DISCHARGED BY: Dr. Gomez REASON FOR ADMISSION: 53 years old male with past medical history significant for end-stage renal disease, on hemodialysis, diabetes mellitus type 2, hypertension, history of right kidney mass, status post nephrectomy 5 years ago, recent left clotted AV fistula, status post declotting, history of bilateral cataracts, initially presented to [facility] complaining of left-sided weakness for about a week. Weakness was constant. Patient never experienced this before. Patient denied any trauma or fall. He complained of tingling, numbness, and weakness on the left side. He denied fever or chills. He denied nausea , vomiting , diarrhea. Patient denied bowel or urine incontinence. Patient denied loss of consciousness. Shortly after initial evaluation in emergency department patient was confirmed to have acute CVA. Patient subsequently was transferred to [facility] for further management and neurological monitoring. CONSULTANTS: pulmonary/critical care Dr. Sales sew on operator Dr. Liriano [facility] COURSE: Patient admitted to monitored floor. CT of the head revealed abnormal enhancement of the right basal ganglia region extending into the right [place] radiata with mass effect and edema compressing the right lateral ventricle with 5 right to left midline shift. Considerations included subacute infarction , tumor and cerebritis. Further evaluation with MRI with gadolinium was recommended MRI of the brain revealed heterogeneous, enhancing, partially cystic 4.2 x 2.8 x 2.8 cm mass involving the right thalamus, right lateral ventricle and adjacent [place] radiata suspicious for primary [employer] neoplasm. Mild compression of the third ventricle without evidence of hydrocephalus. No evidence of acute hemorrhage. No additional lesions identified. Differential considerations include primary [employer] neoplasm such as a subependymoma or glioblastoma. Associated small, acute infarct involving the right aspect of the splenium of the corpus callosum and adjacent [place] radiata. Neuro-checks were done frequently. DVT prophylaxis provided. Echocardiogram revealed preserved ejection fraction 65% with mild left ventricular hypertrophy. No evidence of wall motion abnormality. Right ventricular systolic pressure of 8. Antiplatelet therapy with aspirin provided. Lipid panel was stable. Statin continued. Blood pressure was managed with calcium channel josephine and beta-josephine. Patient remained in sinus treat with company he was not telemetry. Blood sugar was managed with glipizide and sliding scale insulin as needed. Hemodialysis provided as per sew on operator recommendations close monitoring of volume, renal parameters and electrolytes. Electrolytes were corrected as needed. Anemia work-up revealed evidence of anemia of chronic disease , likely due to chronic kidney disease. Hemoglobin and hematocrit were closely monitored with goal to keep hemoglobin above 7. Prior to discharge hemoglobin 12.3 hematocrit 36.6. Supportive care provided. Bowel regimen instituted. Fall precautions maintained. Patient was working with a physical therapist. Results of MRI were discussed with patient and his family. Patient to follow-up with Dr. Gomez next week on Saturday. Patient was ready for discharge home with home health services to follow. FINAL DIAGNOSES: Acute CVA Probably [employer] neoplasm Hypertension End-stage renal disease, on hemodialysis Diabetes mellitus type 2 Dyslipidemia DISCHARGE MEDICATIONS: See Medication Reconciliation list. DISCHARGE INSTRUCTIONS: Patient was discharged home with home health services. Follow up with Dr Gomez next week . I have been assigned to dictate discharge summary for this account. I was not involved in the patient's management. Stella Scott NP Jun 07, 2019 21:02
[2019-06-08] MEDS ORDERED: Aspirin Baby 81mg ORAL SCH (09:00)
--- NOTE | 2019-06-08 10:47 | Cardiology Report ---
APPROVED REPORT EXAM: Two-dimensional and M-mode echocardiogram with Doppler and color Doppler. INDICATION CVA/TIA M-Mode DIMENSIONS IVSd1.5 (0.7-1.1cm)Left Atrium (MM)4.3 (1.6-4.0cm) LVDd4.2 (3.5-5.6cm)Aortic Root3.0 (2.0-3.7cm) PWd1.3 (0.7-1.1cm)Aortic Cusp Exc.2.0 (1.5-2.0cm) LVDs2.5 (2.5-4.0cm) PWs2.0 cm Normal left ventricular chamber size, systolic function and wall motion. Left ventricular ejection fraction estimated to be 65 %. Mild left ventricular hypertrophy. Anterior Echo-free space, may be due to pericardial fat or effusion. Moderate left atrial enlargement. Mild right atrial enlargement. Right ventricular chamber size is within normal limits. Focal aortic valve sclerosis with adequate cusp excursion. Thickened mitral valve leaflets with normal excursion. Mitral annulus and aortic root calcification. Pulmonic valve not well visualized. Normal tricuspid valve structure. IVC at normal size with physiologic collapse. A color flow and spectral Doppler study was performed and revealed: Trace mitral regurgitation. Mitral inflow indicates normal left ventricular diastolic function. Trace tricuspid regurgitation. Tricuspid systolic velocities suggests peak right ventricular systolic pressure of 8 mmHg.
== END 2019-06-07 18:45 | disposition home health service (06) | DRG 64 ==
LOC: 2E 22:54 → 4E 06-07 09:35
PROC: 5A1D70Z Performance of Urinary Filtration, Intermittent, Less than 6 Hours Per Day (ICD-10-PCS; principal; 2019-06-05)
DX: I63.89 Other cerebral infarction (principal); N18.6 End stage renal disease; I12.0 Hypertensive chronic kidney disease with stage 5 chronic kidney disease or end stage renal disease; G81.94 Hemiplegia, unspecified affecting left nondominant side; E11.22 Type 2 diabetes mellitus with diabetic chronic kidney disease; D43.2 Neoplasm of uncertain behavior of brain, unspecified; Z99.2 Dependence on renal dialysis; Z90.5 Acquired absence of kidney; E78.5 Hyperlipidemia, unspecified; D63.1 Anemia in chronic kidney disease
CPT/HCPCS: 36415; 70470; 70553; 80053; 80061; 81001; 82270; 82378; 82550; 82607; 82746; 82962; 83540; 83550; 83615; 83735; 84100; 84133; 84300; 84484; 84550; 85007; 85025; 85044; 85060; 85610; 85651; 85730; 86140; 87081; 87340; 89050; 93306; 93880; A9585; J1815